=== PATIENT | male | born 1945 | race Caucasian/White ===

== ENCOUNTER → 2018-09-03 | Outpatient (CLI) | payer MEDICARE | LOC: LABPAT 15:44 | PROVIDERS: ATTEND Orthopaedic Surgery | DX: Z01.812 Encounter for preprocedural laboratory examination (principal) | CPT/HCPCS: 87070 ==

== ENCOUNTER 2018-10-21 07:52 | Inpatient (IN) | payer MEDICARE ==
[2018-10-09 12:14] VITALS: BMI 35.6
--- NOTE | 2018-10-20 19:14 | HP ---
HISTORY AND PHYSICAL REASON FOR ADMISSION: Surgery scheduled for 10/21/2018 HISTORY OF PRESENT ILLNESS: Andrzej Bear is a 73-year-old patient seen with symptomatic right knee osteoarthritis. We discussed treatment options. He elected to proceed with right total knee arthroplasty. Consent regarding the procedure was obtained. Medical clearance was provided through the [facility]. PAST MEDICAL HISTORY: Hypertension, hyperlipidemia, hll-phazjgt-[id number] diabetes, gastroesophageal reflux disease. PAST SURGICAL HISTORY: Appendectomy, left total knee arthroplasty, herniorrhaphy. DAILY MEDICATIONS: Atorvastatin, finasteride, losartan, metoprolol, omeprazole. ALLERGIES: None. SOCIAL HISTORY: Denies current tobacco use. PHYSICAL EXAMINATION: Evaluation of the right knee: Range of motion is -2 to 115 degrees. There is tenderness along the medial joint line. Crepitus along the medial patellofemoral compartments with range of motion. Pain with patellofemoral compression. Ligaments are stable. Hip rotation is without pain. Distal neurovascular exam is intact. RADIOGRAPHS: Right knee radiographs reveal severe medial and moderate patellofemoral compartment osteoarthritis. IMPRESSION: 1. Right knee osteoarthritis. 2. Hypertension. 3. Hyperlipidemia. 4. Gastroesophageal reflux disease. 5. Kbe-lvuzweg-fpuffuscr diabetes. PLAN: Right total knee arthroplasty. Surgery 10/21/2018. MMODL / IJN: [id number] /
[~2018-10-21 07:52] MED LIST: ACETAMINOPHEN TAB 500 MG TAB PO ONE; DEXAMETHASONE SOD PHOSPHATE 10 MG/ML 1 ML VIAL IV ONE; LACTATED RINGERS 1,000 ML IV SCH; LIDOCAINE 1% 20 ML VIAL (10MG/ML) FOR IV START INTRADERMA PRN; MELOXICAM 7.5 MG TAB PO ONE; MIDAZOLAM 2 MG/2 ML VIAL IV PRN; ONDANSETRON 4 MG/2 ML VIAL IVP ONE; TRANEXAMIC ACID 1,000 MG in SODIUM CHLORIDE 0.9% 100 ML IVPB ONE; VANCOMYCIN 1,750 MG in SODIUM CHLORIDE 0.9% 500 ML 500 ML IVPB ONE
[2018-10-21 08:47] LABS: Glucose,Whole Blood 108 mg/dL (75-99)
[2018-10-21] MEDS ORDERED: MIDAZOLAM (PF) 2 MG/2 ML VIAL IV ONE (09:25)
[2018-10-21] MEDS ORDERED: fentaNYL (PF) 50 MCG/ML 2 ML AMP IV ONE (09:25)
[2018-10-21] MEDS ORDERED: ROPIVACAINE 1,100 MG, SODIUM CHLORIDE 0.9% 500 ML 330 ML MISCELLANE PRN ×2 (09:52)
--- NOTE | 2018-10-21 09:52 | P.ANPRN ---
Procedure Note - Anesthesia - Nerve Block Performed Right Adductor Canal Infusion Time Out Performed: Yes Date of Procedure: 10/21/18 Procedure Start Time: :24 Procedure Stop Time: 09:35 Location of Patient Procedure: PreOp Indication: Requested by physician Specifically requested for management of pain by DrModesto: Berry Whittaker Sedation Type: Sedate with meaningful contact maintained Preparation: Sterile Prep, Sterile Dressing Position: Supine Needle Types: Pajunk Needle Gauge: 20 Technique: Ultrasound Injectate: 0.5% Ropivacaine (see comment for volume) (20 ml) Blood Aspirated: No Pain Paresthesia on Injection Noted: No Resistance on Injection: Normal Events: Uneventful and Well Tolerated
[2018-10-21] MEDS ORDERED: ROPIVACAINE 246.25 MG, EPINEPHrine 0.5 MG, KETOROLAC 30 MG, cloNIDine HCL/PF 80 MCG, WA... MISCELLANE ONE ×10 (09:59→10:07)
[2018-10-21] MEDS ORDERED: SODIUM CHLORIDE 0.9% 100 ML BAG ONE (10:24)
[2018-10-21] MEDS ORDERED: PROPOFOL 10 MG/ML 20 ML VIAL IV ONE (10:24)
[2018-10-21] MEDS ORDERED: TRANEXAMIC ACID 1,000 MG/10 ML VIAL ONE (10:24)
[2018-10-21] MEDS ORDERED: KETAMINE 10 MG/ML 20 ML VIAL ONE (10:24)
[2018-10-21] MEDS ORDERED: MIDAZOLAM 2 MG/2 ML VIAL ONE (10:24)
[2018-10-21] MEDS ORDERED: ceFAZolin 3,000 MG in SODIUM CHLORIDE 0.9% IRRIGATIO 3,000 ML IRRIGATION ONE (11:02)
[2018-10-21] MEDS ORDERED: LACTATED RINGERS 1,000 ML IV ONE (11:43)
[2018-10-21] MEDS ORDERED: ONDANSETRON 4 MG/2 ML VIAL IVP PRN (12:12)
[2018-10-21] MEDS ORDERED: HYDROmorphone 0.5 MG/0.5 ML SYRINGE IVP PRN ×2 (12:12)
[2018-10-21] MEDS ORDERED: NALOXONE 0.4 MG/ML 1 ML VIAL IV PRN (12:12)
[2018-10-21] MEDS ORDERED: HYDROcodone/APAP 5-325MG 1 EACH TAB PO PRN (12:12)
--- NOTE | 2018-10-21 12:12 | P.OP ---
Date of Procedure: 10/21/18 Preoperative Diagnosis: Right knee osteoarthritis Postoperative Diagnosis: Right knee osteoarthritis Procedure(s) Performed: Right total knee arthroplasty Implants: 1. Depuy attune size 7 right cruciate retaining cemented femur 2. Depuy attune size 7 fixed bearing cemented tibial baseplate 3. Depuy attune fixed bearing size 710 mm polyethylene tibial insert 4. Depuy attune 41 mm all polyethylene cemented patella Anesthesia: regional (Adductor canal catheter), local, spinal Surgeon: Berry Whittaker [employer] Printer #1: Shubham Campo Estimated Blood Loss (ml): 50 Pathology: other (Bone) Condition: stable Disposition: PACU Indications for Procedure: 73-year-old patient seen with symptomatic right knee osteoarthritis. After treatment options were discussed with him, he elected to proceed with total knee arthroplasty. Operative Findings: See description of procedure Description of Procedure: Patient was taken to the operative suite after having an adductor canal catheter placed by the department of anesthesia for postoperative pain management. Patient underwent a spinal anesthetic by the department of anesthesia. Patient was given preoperative IV intake antibiotics and TXA. A well-padded tourniquet was placed about the right lower extremity. The lower extremity was then prepped and draped in the normal sterile orthopedic fashion. The extremity was elevated, a tourniquet was insufflated to 300. A standard anterior incision was made sharply through skin. Dissection was taken down through the subcutaneous soft tissues down to the extensor mechanism. A medial arthrotomy was performed, patella was everted and knee was flexed. There was advanced osteoarthritis noted. I introduced my distal intramedullary femoral drill. I then introduced the distal femoral cutting jig. Andrey JONES secured the cutting jig with 2 pins. I held retractors in position while Andrey JONES performed the distal femoral resection through the guide area we now removed her distal femoral cutting guide. We now placed our 4-in-1 femoral cutting block and positioned and it was secured with 2 pins by Andrey JONES while I held the block in position. The distal femoral finishing was now completed. A proximal tibial cutting guide was positioned. I held the guide in the appropriate position with both hands well Andrey JONES inserted stabilizing pins into the guide. Proximal tibial cut was made. We now placed a trial femoral component into position, along with an appropriate size tibial tray and insert. We now took the knee through range of motion and had full extension good flexion and good overall soft tissue balance noted. The patella was everted and stabilized with 2 towel clips held by Andrey JONES while I performed a flush with patellar quad tendon utilizing a fresh sawblade. We templated the patella, appropriate drill holes were made. An appropriate trial patella was positioned, knee was taken through full range of motion with the patella tracking very nicely. The trial patella was removed. Drill holes were made through the femoral component. All trial components were removed after marking off the appropriate rotation of the tibia. Retractors were now positioned along the proximal tibia. An appropriate keel punch was made with the appropriate size tibial guide by myself on Andrey JONES assisted by holding retractors. At this point appropriate size implants were chosen and opened. The joint was irrigated copiously with pulse lavage mechanical irrigation. The posterior capsule was infiltrated with local analgesic. The wound was irrigated with pulse lavage mechanical irrigation. We mixed antibiotic methylmethacrylate. We placed the knee into flexion. We placed multiple retractors assisted by Andrey JONES to expose the proximal tibia. Once the methyl methacrylate was ready, the tibial component was cemented into place removing any excess methylmethacrylate form by both myself and Andrey JONES. The femoral component was cemented into place removing the removing any excess methylmethacrylate performed by both myself and Andrey JONES. We then inserted the appropriate size polyethylene tibial insert. We made sure that it was locked into position. We took the knee into full extension, and then back in a flexion making sure we had removed any excess methylmethacrylate. The patellar component was then cemented down and secured with clamp. Excess methylmethacrylate removed. We kept the knee in full extension, patellar clamp in position until methylmethacrylate had hardened. Once it had hardened the patellar clamp was removed. The knee was taken through full range of motion. The patella tracked nicely. There was good soft tissue balancing. The tourniquet was now released. Additional hemostasis was achieved via electrocautery. A second gram of TXA was given. The wound again was irrigated with pulse lavage mechanical irrigation. The superficial soft tissues were infiltrated local analgesic. The extensor mechanism was repaired with Vicryl. We checked the repair with range of motion and it was stable. The subcutaneous soft tissues were repaired with Vicryl in layers. The skin was approximated with pernio/Dermabond. Sterile dressings were applied followed by loose web roll and Edy bandage. The patient was transferred to a bed, and taken to recovery in stable and satisfactory condition. Andrey JONES assisted with this complex procedure.
[2018-10-21 13:49] LABS: Glucose,Whole Blood 131 mg/dL (75-99)
--- NOTE | 2018-10-21 14:27 | XR ---
EXAMINATION TYPE: XR knee limited RT DATE OF EXAM: 10/21/2018 COMPARISON: NONE TECHNIQUE: Two views submitted HISTORY: Post op FINDINGS: There is a prosthetic knee in near anatomic alignment. There is soft tissue edema and emphysema. IMPRESSION: 1. Postoperative change. Appears in near-anatomic alignment
--- NOTE | 2018-10-21 16:54 | P.CONS ---
History of Present Illness - Reason for Consult Consult date: 10/21/18 hypertension Requesting physician: Berry Whittaker - Chief Complaint right knee pain - History of Present Illness Patient is a 73-year-old male past medical history of hypertension, dyslipidemia, borderline diabetes, and arthritis who presented for elective right total knee arthroplasty. He tolerated the procedure well without any immediate postoperative complications. Patient seen and examined at bedside. He states his pain is really well- controlled as a 3 out of 10 at this point in time. He denies any chest pain, shortness of breath, nausea, vomiting, or dizziness. He has been well recently denies any recent cough, cold, fever, flu, dysuria, diarrhea, constipation, nausea, or vomiting. He states that he had his last knee replacement [facility] 3 years ago and then spent 1 month in rehab. He reports that he underwent steroid and hyaluronic acid injections without relief of his knee pain or increased ability he therefore decided to present for knee replacement. Review of Systems Pertinent positives and negatives as discussed in HPI, a complete review of systems was performed and all other systems are negative. Past Medical History Past Medical History: GERD/Reflux, Hyperlipidemia, Hypertension, Osteoarthritis (OA), Prostate Disorder, Sleep Apnea/CPAP/BIPAP Additional Past Medical History / Comment(s): one seizure, borderline diabetic, diverticulitis, hiatal hernia History of Any Multi-Drug Resistant Organisms: None Reported Past Surgical History: Hernia Repair, Joint Replacement Additional Past Surgical History / Comment(s): left knee replacement, bilat hernia, pectus excavatum repair Past Anesthesia/Blood Transfusion Reactions: Motion Sickness Additional Past Anesthesia/Blood Transfusion Reaction / Comm: woke up during surgey once Past Psychological History: No Psychological Hx Reported Smoking Status: Never smoker Past Alcohol Use History: None Reported Past Drug Use History: Marijuana Additional Drug Use History / Comment(s): occasionally - Past Family History Father Family Medical History: Cancer Additional Family Medical History / Comment(s): colon Medications and Allergies Home Medications Medication Instructions Recorded Confirmed Type Atorvastatin [Lipitor] 40 mg PO HS 10/09/18 10/21/18 History Cholecalciferol (Vitamin D3) 2,000 unit PO DAILY 10/09/18 10/21/18 History [Vitamin D3] Finasteride [Proscar] 5 mg PO QAM 10/09/18 10/21/18 History Losartan [Cozaar] 50 mg PO QAM 10/09/18 10/21/18 History Metoprolol Tartrate [Lopressor] 25 mg PO BID 10/09/18 10/21/18 History Omeprazole 20 mg PO QAM 10/09/18 10/21/18 History Tamsulosin [Flomax] 0.4 mg PO DAILY 10/09/18 10/21/18 History Allergies Allergy/AdvReac Type Severity Reaction Status Date / Time No Known Allergies Allergy Verified 10/21/18 08:32 Physical Exam Osteopathic Statement: *. No significant issues noted on an osteopathic structural exam other than those noted in the History and Physical/Consult. Vitals: Vital Signs Temp Pulse Resp BP BP Pulse Ox 10/21/18 15:00 64 16 146/75 96 10/21/18 14:30 66 16 111/56 95 10/21/18 14:00 76 16 133/76 96 10/21/18 13:45 66 16 125/66 97 10/21/18 13:30 62 16 125/77 97 10/21/18 13:15 63 16 126/66 97 10/21/18 13:00 66 16 117/67 97 10/21/18 12:45 74 16 119/66 96 10/21/18 12:29 97.1 F L 73 16 120/64 93 L 10/21/18 09:46 61 16 124/65 97 10/21/18 08:11 97.6 F 71 16 116/65 95 Intake and Output 10/21/18 10/21/18 10/21/18 06:59 14:59 22:59 Intake Total 1701 300 Output Total 50 Balance 1651 300 Intake: IV 1701 300 Output: Estimated Blood Loss 50 General: non toxic, no distress, appears at stated age, Obese Derm: no unusual rashes/lesions no unusual ecchymoses, warm, dry Head: atraumatic, normocephalic, symmetric Eyes: EOMI, no lid lag, anicteric sclera, pupils equal round reactive to light ENT: Nose and ears atraumatic, no thrush, no pharyngeal erythema Neck: No thyromegaly, no cervical lymphadenopathy, trachea midline, supple Mouth: no lip lesion, mucus membranes dry Cardiovascular: S1S2 reg, no murmur, capillary refill less than 2 seconds Lungs: CTA bilateral, no rhonchi, no rales , no accessory muscle use Abdominal: soft, nontender to palpation, no guarding, no appreciable organomegaly, normal bowel sounds Ext: RLE with dressing in place, no gross muscle atrophy, muscle strength 5 out of 5 in bilateral upper extremities grossly, no contractures, able to wiggle toes bilateral Neuro: CN II-XI grossly intact, light touch intact all 4 extremities, finger to nose within normal limits, Psych: Alert, oriented, appropriate affect Results Labs: Abnormal Lab Results - Last 24 Hours (Table) 10/21/18 10/21/18 Range/Units 08:43 13:25 POC Glucose (mg/dL) 108 H 131 H (75-99) mg/dL Assessment and Plan Assessment: Hyperglycemia with hx of Prediabetes - SSI - follow BS HTN, controlled - losartan, lopressor HLD - continue lipitor BPH - proscar, flomax GERD - Protonix Obesity with BMI 35.6 - structured outpatient atkins loss Gait disturbances - uses a cane at baseline Thank you for allowing us to participate in the care of this patient. We will follow peripherally. Do not hesitate to contact us with questions. Someone can be reached from the [facility] hospitalist group at all hours of the day at [phone].
[2018-10-21 17:07] LABS: Glucose,Whole Blood 223 mg/dL (75-99)
[2018-10-21] MEDS: INSULIN ASPART (NovoLOG) 100 UNIT/ML VIAL SQ SCH ×2 (17:58→22:49)
[2018-10-21] MEDS: ceFAZolin IN SWFI 2 GM/20 ML SYRINGE IVP SCH ×2 (17:59→23:20)
[2018-10-21] MEDS: SODIUM CHLORIDE 0.9% 1,000 ML IV SCH (17:59)
[2018-10-21 20:03] LABS: Glucose,Whole Blood 205 mg/dL (75-99)
[2018-10-21] MEDS: SENNOSIDES-DOCUSATE SODIUM 1 EACH TAB PO SCH (22:48)
[2018-10-21] MEDS: ENOXAPARIN 30 MG/0.3 ML SYRINGE SQ SCH (22:48)
[2018-10-21] MEDS: METOPROLOL TARTRATE 25 MG TAB PO SCH (22:48)
[2018-10-21] MEDS: ATORVASTATIN 40 MG TAB PO SCH (22:48)
[2018-10-22 01:54] LABS: Glucose,Whole Blood 165 mg/dL (75-99)
[2018-10-22] MEDS: HYDROcodone/APAP 7.5-325MG 1 EACH TAB PO PRN ×3 (04:21→22:22)
[2018-10-22 07:15] LABS: Glucose,Whole Blood 127 mg/dL (75-99)
[2018-10-22] MEDS: INSULIN ASPART (NovoLOG) 100 UNIT/ML VIAL SQ SCH ×4 (07:28→21:59)
[2018-10-22 09:01] LABS: Basophils % (A) 0 %; Eosinophils % (A) 0 %; HCT 38.9 % (39.0-53.0); HGB 12.5 gm/dL (13.0-17.5); Lymphocytes % (A) 7 %; MCH 29.8 pg (25.0-35.0); MCHC 32.1 g/dL (31.0-37.0); Mean Platelet Volume 7.5; Monocytes # (A) 0.7 k/uL (0-1.0); Monocytes % (A) 6 %; Neutrophils # (A) 11.1 k/uL (1.3-7.7); Neutrophils % (A) 86 %; Platelet Count 202 k/uL (150-450); RBC 4.18 m/uL (4.30-5.90); RDW 14.2 % (11.5-15.5)
[2018-10-22] MEDS: PANTOPRAZOLE 40 MG TABLET PO SCH (09:22)
[2018-10-22] MEDS: METOPROLOL TARTRATE 25 MG TAB PO SCH ×2 (09:22→22:04)
[2018-10-22] MEDS: ENOXAPARIN 30 MG/0.3 ML SYRINGE SQ SCH ×2 (09:22→22:05)
[2018-10-22] MEDS: FINASTERIDE 5 MG TAB PO SCH (09:23)
[2018-10-22] MEDS: TAMSULOSIN 0.4 MG CAP.ER.24H PO SCH (09:23)
[2018-10-22] MEDS: MELOXICAM 7.5 MG TAB PO SCH (09:23)
[2018-10-22] MEDS: LOSARTAN 50 MG TAB PO SCH (09:23)
[2018-10-22] MEDS ORDERED: MELATONIN 3 MG TABLET PO PRN (09:45)
[2018-10-22] MEDS ORDERED: ARTIFICIAL TEARS-HYPROMELLOSE DROPS 15 ML BTL BOTH EYES PRN (09:45)
--- NOTE | 2018-10-22 09:51 | P.PN ---
Subjective Progress Note Date: 10/22/18 Principal diagnosis: knee pain Patient is a 73-year-old male past medical history of hypertension, dyslipidemia, borderline diabetes, and arthritis who presented for elective right total knee arthroplasty. He tolerated the procedure well without any immediate postoperative complications. Patient seen and examined at bedside. He complains of not being able to sleep last night. He also states her dyspnea somewhat sore today. He denies any chest pain, shortness of breath, or nausea. Objective - Vital Signs Vital signs: Vital Signs Temp 97.5 F L 10/22/18 07:00 Pulse 66 10/22/18 07:36 Resp 16 10/22/18 07:36 BP 118/72 10/22/18 07:00 Pulse Ox 96 10/22/18 07:00 Intake & Output 10/21/18 10/22/18 10/22/18 18:59 06:59 18:59 Intake Total 2241 10 Output Total 50 200 200 Balance 2191 -190 -200 Intake: IV 2001 Oral 240 10 Output: Urine 200 200 Estimated Blood Loss 50 Other: Voiding Method Urinal Urinal Urinal - Exam General: non toxic, no distress, appears at stated age, obese Derm: warm, dry Head: atraumatic, normocephalic, symmetric Eyes: EOMI, no lid lag, anicteric sclera Mouth: no lip lesion, mucus membranes moist Cardiovascular: S1S2 reg, no murmur, positive posterior tibial pulse bilateral, Lungs: CTA bilateral, no rhonchi, no rales , no accessory muscle use Abdominal: soft, nontender to palpation, no guarding, no appreciable organomegaly Ext: no gross muscle atrophy, 1+ edema, dressing in place over right knee, no contractures Neuro: CN II-XI grossly intact, no focal neuro deficits Psych: Alert, oriented, appropriate affect - Labs CBC & Chem 7: 10/22/18 08:19 Labs: Abnormal Lab Results - Last 24 Hours (Table) 10/21/18 10/21/18 10/21/18 Range/Units 13:25 17:06 20:00 WBC (3.8-10.6) k/uL RBC (4.30-5.90) m/uL Hgb (13.0-17.5) gm/dL Hct (39.0-53.0) % Neutrophils # (1.3-7.7) k/uL POC Glucose (mg/dL) 131 H 223 H 205 H (75-99) mg/dL 10/22/18 10/22/18 10/22/18 Range/Units 01:50 07:14 08:19 WBC 13.0 H (3.8-10.6) k/uL RBC 4.18 L (4.30-5.90) m/uL Hgb 12.5 L (13.0-17.5) gm/dL Hct 38.9 L (39.0-53.0) % Neutrophils # 11.1 H (1.3-7.7) k/uL POC Glucose (mg/dL) 165 H 127 H (75-99) mg/dL Assessment and Plan Assessment: Patient is a 73-year-old male here after right TKA. Hyperglycemia with hx of Prediabetes, improving - SSI - follow BS Insomnia -Melatonin Anemia, acute blood loss -Mild -No need for iron supplementation at this point in time HTN, controlled - losartan, lopressor HLD - continue lipitor BPH - proscar, flomax GERD - Protonix Obesity with BMI 35.6 - structured outpatient atkins loss Gait disturbances - uses a cane at baseline Medically optimized. Discharge at the discretion of orthopedics.
--- NOTE | 2018-10-22 10:43 | P.PN ---
Progress Note - Text 10/22 652 am 73 year old male s/p tkr by Dr Whittaker. pt has an on -q pump for post op pain control with the solution running at 8cc per hour with a vas of 2. continue present management.
[2018-10-22 11:36] LABS: Glucose,Whole Blood 125 mg/dL (75-99)
--- NOTE | 2018-10-22 11:45 | P.PN ---
Subjective Progress Note Date: 10/22/18 Principal diagnosis: Status post right total knee arthroplasty Patient evaluated at bedside today. He does note some increasing pain in the right knee. It is very difficult time sleeping. He denies chest pain or shortness of breath. Concerned about going home, he has a lot of stairs at home, he also lives by himself. Objective - Vital Signs Vital signs: Vital Signs Temp 97.5 F L 10/22/18 07:00 Pulse 66 10/22/18 07:36 Resp 16 10/22/18 07:36 BP 118/72 10/22/18 07:00 Pulse Ox 96 10/22/18 07:00 Intake & Output 10/21/18 10/22/18 10/22/18 18:59 06:59 18:59 Intake Total 2241 10 Output Total 50 200 200 Balance 2191 -190 -200 Intake: IV 2001 Oral 240 10 Output: Urine 200 200 Estimated Blood Loss 50 Other: Voiding Method Urinal Urinal Urinal - Exam Right lower extremity: Incision is clean, dry, and intact. The exofin fusion tape is in good condition. There is minimal soft tissue swelling and ecchymosis surrounding the medial and lateral aspects of the incision. Calf is soft, no tenderness with palpation. Plantar flexion, dorsiflexion, EHL, FHL are intact. Sensory exam to light touch throughout the extremity is intact, dorsal pedis pulses 2+. - Labs CBC & Chem 7: 10/22/18 08:19 Labs: Abnormal Lab Results - Last 24 Hours (Table) 10/21/18 10/21/18 10/21/18 Range/Units 13:25 17:06 20:00 WBC (3.8-10.6) k/uL RBC (4.30-5.90) m/uL Hgb (13.0-17.5) gm/dL Hct (39.0-53.0) % Neutrophils # (1.3-7.7) k/uL POC Glucose (mg/dL) 131 H 223 H 205 H (75-99) mg/dL 10/22/18 10/22/18 10/22/18 Range/Units 01:50 07:14 08:19 WBC 13.0 H (3.8-10.6) k/uL RBC 4.18 L (4.30-5.90) m/uL Hgb 12.5 L (13.0-17.5) gm/dL Hct 38.9 L (39.0-53.0) % Neutrophils # 11.1 H (1.3-7.7) k/uL POC Glucose (mg/dL) 165 H 127 H (75-99) mg/dL 10/22/18 Range/Units 11:35 WBC (3.8-10.6) k/uL RBC (4.30-5.90) m/uL Hgb (13.0-17.5) gm/dL Hct (39.0-53.0) % Neutrophils # (1.3-7.7) k/uL POC Glucose (mg/dL) 125 H (75-99) mg/dL Assessment and Plan Plan: Assessment: Postoperative day #1 status post right total knee arthroplasty Plan: Pain control, continue oral medication, IV as needed GI and DVT prophylaxis, continue current medication Continue working with physical therapy Medical recommendations Daily dressing changes/ice and elevate Due to patient's living status at home, plan for discharge to rehab. Patient has been made inpatient Time with Patient: Less than 30
[2018-10-22 16:23] LABS: Glucose,Whole Blood 102 mg/dL (75-99)
[2018-10-22] MEDS: HYDROmorphone 0.5 MG/0.5 ML SYRINGE IVP PRN (18:12)
[2018-10-22] MEDS: SODIUM CHLORIDE 0.9% 1,000 ML IV SCH (20:30)
[2018-10-22 21:53] LABS: Glucose,Whole Blood 129 mg/dL (75-99)
[2018-10-22] MEDS: ATORVASTATIN 40 MG TAB PO SCH (22:05)
[2018-10-22] MEDS: SENNOSIDES-DOCUSATE SODIUM 1 EACH TAB PO SCH (22:05)
[2018-10-23 02:30] LABS: Glucose,Whole Blood 131 mg/dL (75-99)
[2018-10-23] MEDS: HYDROmorphone 0.5 MG/0.5 ML SYRINGE IVP PRN (02:40)
[2018-10-23] MEDS: SODIUM CHLORIDE 0.9% 1,000 ML IV SCH (05:32)
[2018-10-23] MEDS: HYDROcodone/APAP 7.5-325MG 1 EACH TAB PO PRN (05:58)
[2018-10-23 07:17] LABS: Glucose,Whole Blood 116 mg/dL (75-99)
[2018-10-23 07:24] VITALS: RESP 16
[2018-10-23] MEDS: INSULIN ASPART (NovoLOG) 100 UNIT/ML VIAL SQ SCH ×2 (07:52→11:44)
[2018-10-23] MEDS: TAMSULOSIN 0.4 MG CAP.ER.24H PO SCH (08:01)
[2018-10-23] MEDS: METOPROLOL TARTRATE 25 MG TAB PO SCH (08:01)
[2018-10-23] MEDS: MELOXICAM 7.5 MG TAB PO SCH (08:01)
[2018-10-23] MEDS: PANTOPRAZOLE 40 MG TABLET PO SCH (08:01)
[2018-10-23] MEDS: FINASTERIDE 5 MG TAB PO SCH (08:02)
[2018-10-23] MEDS: LOSARTAN 50 MG TAB PO SCH (08:02)
[2018-10-23] MEDS: ENOXAPARIN 30 MG/0.3 ML SYRINGE SQ SCH (08:02)
[2018-10-23] MEDS ORDERED: HYDROcodone/APAP 7.5-325MG 1 EACH TAB PO PRN (08:09)
--- NOTE | 2018-10-23 10:42 | P.PN ---
Subjective Progress Note Date: 10/23/18 Principal diagnosis: Status post right total knee arthroplasty Patient evaluated at bedside today. Patient's pain is slightly improved since yesterday. He denies chest pain or shortness of breath. Objective - Vital Signs Vital signs: Vital Signs Temp 98.2 F 10/23/18 07:00 Pulse 72 10/23/18 07:00 Resp 16 10/23/18 07:00 BP 145/84 10/23/18 07:00 Pulse Ox 95 10/23/18 07:00 Intake & Output 10/22/18 10/23/18 10/23/18 18:59 06:59 18:59 Intake Total 10 260 Output Total 200 Balance -200 10 260 Intake: Oral 10 260 Output: Urine 200 Other: Voiding Method Urinal # Voids 2 1 - Exam Right lower extremity: Incision is clean, dry, and intact. The exofin fusion tape is in good condition. There is minimal soft tissue swelling and ecchymosis surrounding the medial and lateral aspects of the incision. Calf is soft, no tenderness with palpation. Plantar flexion, dorsiflexion, EHL, FHL are intact. Sensory exam to light touch throughout the extremity is intact, dorsal pedis pulses 2+. - Labs CBC & Chem 7: 10/22/18 08:19 Labs: Abnormal Lab Results - Last 24 Hours (Table) 10/22/18 10/22/18 10/22/18 Range/Units 11:35 16:21 21:50 POC Glucose (mg/dL) 125 H 102 H 129 H (75-99) mg/dL 10/23/18 10/23/18 Range/Units 02:29 07:16 POC Glucose (mg/dL) 131 H 116 H (75-99) mg/dL Assessment and Plan Plan: Assessment: Postoperative day #2 status post right total knee arthroplasty Plan: Pain control, plan for discharge home on oral medication GI and DVT prophylaxis, aspirin 81 mg twice a day Continue working with physical therapy Medical recommendations Daily dressing changes/ice and elevate Patient will be discharged to rehab today Time with Patient: Less than 30
--- NOTE | 2018-10-23 10:46 | P.DS ---
Providers Date of admission: 10/21/2018 Expected date of discharge: 10/23/18 Attending physician: Berry Whittaker Consults: 10/21/18 12:12 Consult Physician Routine Consulting Provider: Lyssa Harvey Consult Reason/Comments: Medical management Do you want consulting provider notified?: Yes Primary care physician: Stated None Hospital Course: Date of admission: 10/21/2018 Date of discharge: 10/23/2018 Admission diagnosis: Status post right total knee arthroplasty Discharge diagnosis: Same Attending physician: Dr. Whittaker Surgical procedures: Right total knee arthroplasty Brief history: Patient is a 73-year-old male with a history of progressive primary right knee osteoarthritis. At this point patient has failed conservative treatment measures and has opted to proceed with a elective right total knee arthroplasty. Hospital course: Details of patient's surgery can be found in operative report. Patient tolerated the procedure well and was subsequently transported to orthopedic floor. Patient's orthopeidc and medical care was provided daily. Patient had daily laboratory tests performed for evaluation of overall blood counts. Patient had daily physical therapy to include strengthening range of motion as well as education with walker ambulation. Patient had daily CPM usage as part of their physical therapy program. Patient was treated with Lovenox for their postoperative DVT prophylaxis during their inpatient stay. Patient was noted to have a relatively uneventful postoperative course. Patient reported satisfactory pain control with oral pain medications by postoperative day 0. Patient showed satisfactory progress with physical therapy. Patient moved steadily through the program and had no difficulty meeting the goals by postop erative day 2. Given patient's otherwise satisfactory course and having met physical therapy goals, plan is to discharge patient home on postoperative day 2. Discharge condition/disposition: Patient will be discharged home in stable condition. Discharge medications: Instructions are given on resumption of patient's normal daily medications per primary care recommendation, in addition patient will be prescribed Ladd 7.5 mg/325 mg, Colace 100 mg, aspirin 81 mg. Discharge instructions: 1. Wound care and infection precautions, [keep incision dry and covered while showering], no lotions, creams, moisturizers. No soaking, tubs, pools, hottubs. Do not scrub over the incision. 2. Weight-bear [as tolerated] with walker / cane until follow-up. 3. Ice and elevate when necessary. Do not exceed 20 minutes per hour with ice pack. 4. Utilize compression sleeve until seen at first follow up appointment. 5. Visiting nursing care. 6. Home physical therapy [including home CPM]. 7. Pain meds and anticoagulants per prescription. 8. Pain medication has potential to cause constipation. Increase oral fluid and fiber intake. Contact primary care provider if you have not had a bowel movement within 48 hours after discharge 9. No anti-inflammatory medication until discussed at first post operative visit, this including Motrin, Aleve, Mobic, Diclofenac. 10. Follow up in office at 2 weeks postop with Andrey Campo PA-C 11. Follow up with your primary care doctor 7-10 days after discharge. 12. Contact [facility] with any questions, . Procedures: Right total knee arthroplasty Patient Condition at Discharge: Good Plan - Discharge Summary Discharge Rx Participant: Yes New Discharge Prescriptions: New Aspirin [Adult Low Dose Aspirin EC] 81 mg PO BID #60 tablet. Docusate [Colace] 100 mg PO DAILY #30 capsule HYDROcodone/APAP 7.5-325MG [Ladd 7.5] 1 - 2 each PO Q6HR PRN #56 tab PRN Reason: Pain No Action Tamsulosin [Flomax] 0.4 mg PO DAILY Metoprolol Tartrate [Lopressor] 25 mg PO BID Losartan [Cozaar] 50 mg PO QAM Finasteride [Proscar] 5 mg PO QAM Omeprazole 20 mg PO QAM Cholecalciferol (Vitamin D3) [Vitamin D3] 2,000 unit PO DAILY Atorvastatin [Lipitor] 40 mg PO HS Discharge Medication List Atorvastatin [Lipitor] 40 mg PO HS 10/09/18 [History] Cholecalciferol (Vitamin D3) [Vitamin D3] 2,000 unit PO DAILY 10/09/18 [History] Finasteride [Proscar] 5 mg PO QAM 10/09/18 [History] Losartan [Cozaar] 50 mg PO QAM 10/09/18 [History] Metoprolol Tartrate [Lopressor] 25 mg PO BID 10/09/18 [History] Omeprazole 20 mg PO QAM 10/09/18 [History] Tamsulosin [Flomax] 0.4 mg PO DAILY 10/09/18 [History] Aspirin [Adult Low Dose Aspirin EC] 81 mg PO BID #60 tablet. 10/23/18 [Rx] Docusate [Colace] 100 mg PO DAILY #30 capsule 10/23/18 [Rx] HYDROcodone/APAP 7.5-325MG [Ladd 7.5] 1 - 2 each PO Q6HR PRN #56 tab 10/23/18 [Rx] Follow up Appointment(s)/Referral(s): Shubham Campo, [facility] [[employer]] - 11/06/18 2:50 pm Activity/Diet/Wound Care/Special Instructions: Orthopedic Discharge Instructions: 1. Wound care and infection precautions, keep incision dry and covered while showering, no lotions, creams, moisturizers. No soaking, pools, hot tubs. Do not scrub over incision. 2. Weight-bear as tolerated with walker / cane until follow-up. 3. Ice and elevate when necessary. Do not exceed 20 minutes per hour with ice pack. 4. Utilize compression sleeve until seen at first follow up appointment. 5. Pain meds and anticoagulants per prescription. 6. Pain medication has potential to cause constipation. Increase oral fluid and fiber intake. Contact primary care provider if you have not had a bowel movement within 48 hours after discharge. 7. No anti-inflammatory medication until discussed at first post operative visit, this including Motrin, Aleve, Mobic, Diclofenac. 8. Follow up in office at 2 weeks postop with Andrey Campo PA-C 9. Follow up with your primary care doctor 7-10 days after discharge. 10. Contact [facility] with any questions, . Discharge Disposition: TRANSFER TO SNF/ECF
[2018-10-23 11:35] LABS: Glucose,Whole Blood 101 mg/dL (75-99)
[2018-10-23] MEDS ORDERED: POLYETHYLENE GLYCOL 3350 17 GM POWD.PACK PO PRN (12:08)
[2018-10-23 14:16] VITALS: BP 161/82; PULSE 81; TEMP 98.1
--- NOTE | 2018-10-23 16:12 | P.PN ---
Subjective Progress Note Date: 10/23/18 (delayed charting seen at 10 am) Principal diagnosis: knee pain Patient is a 73-year-old male past medical history of hypertension, dyslipidemia, borderline diabetes, and arthritis who presented for elective right total knee arthroplasty. He tolerated the procedure well without any immediate postoperative complications. Patient seen and examined at bedside. Better last night, pain in knee controlled today but still sore, no chest pain, no shortness of breath, no nausea or vomiting. Still no bowel movement since surgery. Will take 1 dose of MiraLAX. Objective - Vital Signs Vital signs: Vital Signs Temp 98.1 F 10/23/18 14:15 Pulse 81 10/23/18 14:15 Resp 16 10/23/18 14:15 BP 161/82 10/23/18 14:15 Pulse Ox 94 L 10/23/18 14:15 Intake & Output 10/22/18 10/23/18 10/23/18 18:59 06:59 18:59 Intake Total 10 260 Output Total 200 Balance -200 10 260 Intake: Oral 10 260 Output: Urine 200 Other: Voiding Method Urinal # Voids 2 1 2 - Exam General: non toxic, no distress, appears at stated age, obese Derm: warm, dry Head: atraumatic, normocephalic, symmetric Eyes: EOMI, no lid lag, anicteric sclera Mouth: no lip lesion, mucus membranes moist Cardiovascular: S1S2 reg, no murmur, positive posterior tibial pulse bilateral, Lungs: CTA bilateral, no rhonchi, no rales , no accessory muscle use Abdominal: soft, nontender to palpation, no guarding, no appreciable organomegaly Ext: no gross muscle atrophy, 2+ edema, dressing in place over right knee, no contractures Neuro: CN II-XI grossly intact, no focal neuro deficits Psych: Alert, oriented, appropriate affect - Labs CBC & Chem 7: 10/22/18 08:19 Labs: Abnormal Lab Results - Last 24 Hours (Table) 10/22/18 10/22/18 10/23/18 Range/Units 16:21 21:50 02:29 POC Glucose (mg/dL) 102 H 129 H 131 H (75-99) mg/dL 10/23/18 10/23/18 Range/Units 07:16 11:34 POC Glucose (mg/dL) 116 H 101 H (75-99) mg/dL Assessment and Plan Assessment: Patient is a 73-year-old male here after right TKA. Anemia, acute blood loss -Mild -No need for iron supplementation at this point in time HTN, controlled - losartan, lopressor HLD - continue lipitor BPH - proscar, flomax GERD - Protonix Obesity with BMI 35.6 - structured outpatient atkins loss Gait disturbances - uses a cane at baseline Hyperglycemia with hx of Prediabetes, resolved -stop insulin - typically well controlled at home Insomnia, resolved -Melatonin stopped Medically optimized. Discharge at the discretion of orthopedics.
== END 2018-10-23 15:00 | DRG 470 ==
LOC: OR 07:52 → 4SSUR 15:14 → OR 10-22 11:37 → 4SSUR 10-22 14:17
PROVIDERS: ADMIT Orthopaedic Surgery; ATTEND Orthopaedic Surgery
PROC: 0SRC0J9 Replacement of Right Knee Joint with Synthetic Substitute, Cemented, Open Approach (ICD-10-PCS; principal; 2018-10-21 10:15)
DX: M17.11 Unilateral primary osteoarthritis, right knee (principal); D62 Acute posthemorrhagic anemia; E11.65 Type 2 diabetes mellitus with hyperglycemia; E66.9 Obesity, unspecified; E78.5 Hyperlipidemia, unspecified; G47.00 Insomnia, unspecified; G47.30 Sleep apnea, unspecified; Z99.89 Dependence on other enabling machines and devices; I10 Essential (primary) hypertension; K21.9 Gastro-esophageal reflux disease without esophagitis; N40.0 Benign prostatic hyperplasia without lower urinary tract symptoms; Z68.35 Body mass index [BMI] 35.0-35.9, adult; Z79.84 Long term (current) use of oral hypoglycemic drugs; Z79.899 Other long term (current) drug therapy; Z96.652 Presence of left artificial knee joint; K44.9 Diaphragmatic hernia without obstruction or gangrene; R26.89 Other abnormalities of gait and mobility; Z80.0 Family history of malignant neoplasm of digestive organs
CPT/HCPCS: 85025; 85730; 88300

== ENCOUNTER 2018-11-04 13:39 | Inpatient (IN) | payer MEDICARE ==
[2018-11-04] MEDS ORDERED: ONDANSETRON 4 MG/2 ML VIAL IVP STA (16:32)
[2018-11-04] MEDS ORDERED: SODIUM CHLORIDE 0.9% 500 ML 500 ML IV STA (16:32)
[2018-11-04] MEDS ORDERED: PANTOPRAZOLE 40 MG/10 ML VIAL IVP STA (16:50)
[2018-11-04 17:03] LABS: Basophils % (A) 0 %; Eosinophils # (A) 0.1 k/uL (0-0.7); Eosinophils % (A) 2 %; HCT 34.4 % (39.0-53.0); HGB 10.9 gm/dL (13.0-17.5); Lymphocytes # (A) 0.9 k/uL (1.0-4.8); Lymphocytes % (A) 12 %; MCH 29.5 pg (25.0-35.0); MCHC 31.7 g/dL (31.0-37.0); MCV 92.8 fL (80.0-100.0); Mean Platelet Volume 6.4; Monocytes # (A) 0.4 k/uL (0-1.0); Monocytes % (A) 5 %; Neutrophils # (A) 5.8 k/uL (1.3-7.7); Neutrophils % (A) 78 %; Platelet Count 329 k/uL (150-450); RBC 3.71 m/uL (4.30-5.90); RDW 13.6 % (11.5-15.5); WBC 7.4 k/uL (3.8-10.6)
[2018-11-04] MEDS ORDERED: HYDROcodone/APAP 7.5-325MG 1 EACH TAB PO ONE (17:09)
[2018-11-04 17:12] LABS: Albumin 3.6 g/dL (3.5-5.0); INR 0.9 (<1.2); Partial Thromboplastin Time 24.7 sec (22.0-30.0); Potassium 4.4 mmol/L (3.5-5.1); Prothrombin Time 10.2 sec (9.0-12.0); Total Bilirubin 0.6 mg/dL (0.2-1.3); Total Protein 6.4 g/dL (6.3-8.2)
--- NOTE | 2018-11-04 17:23 | ED ---
GI Bleed HPI - General Chief complaint: GI Bleed Stated complaint: Blood in Stool Time Seen by Provider: 11/04/18 16:00 Source: patient Mode of arrival: ambulatory Limitations: no limitations - History of Present Illness Initial comments: The patient is a 73-year-old male who presents emergency room with reported bright red blood per rectum. The patient recently had a right knee replacement on October 22. He has been taking 2 baby aspirins per day for anticoagulation. He was sent to rehab. During rehab he reported multiple bouts of constipation for which he had to take stool softeners. He did come home yesterday. He reports that immediately upon returning home he did have an episode of bright red blood per rectum. He admits to additional episodes today. He reports formed stool covered in bright red blood as well as blood within the toilet bowl and when he wipes. No history of similar in the past. He does report a history of diverticulosis and diverticulitis. Denies a history of peptic ulcer disease. He had an EGD last last year. His last colonoscopy was 4 years ago. He has a history of a hiatal hernia. Admits to nausea with an uneasy stomach. Denies any abdominal pain. No changes in his urination to include dysuria, hematuria or difficulty voiding. No hematemesis. Denies CP, presyncope, dizziness or shortness of breath. No reported fevers or chills. No other alleviating, precipitating or modifying factors - Related Data Home Medications Medication Instructions Recorded Confirmed Atorvastatin [Lipitor] 40 mg PO HS 10/09/18 11/04/18 Cholecalciferol (Vitamin D3) 2,000 unit PO DAILY 10/09/18 11/04/18 [Vitamin D3] Finasteride [Proscar] 5 mg PO QAM 10/09/18 11/04/18 Losartan [Cozaar] 50 mg PO QAM 10/09/18 11/04/18 Metoprolol Tartrate [Lopressor] 25 mg PO BID 10/09/18 11/04/18 Omeprazole 20 mg PO QAM 10/09/18 11/04/18 Tamsulosin [Flomax] 0.4 mg PO DAILY 10/09/18 11/04/18 Previous Rx's Medication Instructions Recorded Docusate [Colace] 100 mg PO DAILY #30 capsule 10/23/18 HYDROcodone/APAP 7.5-325MG [Brick 1 - 2 each PO Q6HR PRN #56 tab 10/23/18 7.5-325] Artificial Tears-Hypromellose 1 drops BOTH EYES QID PRN #0 bottle 11/08/18 [Artificial Tear Drops] Allergies Allergy/AdvReac Type Severity Reaction Status Date / Time No Known Allergies Allergy Verified 11/04/18 16:48 Review of Systems ROS Statement: Those systems with pertinent positive or pertinent negative responses have been documented in the HPI. ROS Other: All systems not noted in ROS Statement are negative. Past Medical History Past Medical History: GERD/Reflux, Hyperlipidemia, Hypertension, Osteoarthritis (OA), Prostate Disorder, Sleep Apnea/CPAP/BIPAP Additional Past Medical History / Comment(s): one seizure, borderline diabetic, diverticulitis, hiatal hernia History of Any Multi-Drug Resistant Organisms: None Reported Past Surgical History: Hernia Repair, Joint Replacement Additional Past Surgical History / Comment(s): left knee replacement, bilat hernia, pectus excavatum repair Past Anesthesia/Blood Transfusion Reactions: Motion Sickness Additional Past Anesthesia/Blood Transfusion Reaction / Comment(s): woke up during surgey once Past Psychological History: No Psychological Hx Reported Smoking Status: Never smoker Past Alcohol Use History: None Reported Past Drug Use History: Marijuana - Past Family History Father Family Medical History: Cancer Additional Family Medical History / Comment(s): colon General Exam Limitations: no limitations General appearance: alert, in no apparent distress Head exam: Present: atraumatic, normocephalic, normal inspection Eye exam: Present: normal appearance, PERRL, EOMI. Absent: scleral icterus, c onjunctival injection, periorbital swelling ENT exam: Present: normal exam, mucous membranes moist Neck exam: Present: normal inspection. Absent: tenderness, meningismus, lymphadenopathy Respiratory exam: Present: normal lung sounds bilaterally. Absent: respiratory distress, wheezes, rales, rhonchi, stridor Cardiovascular Exam: Present: regular rate, normal rhythm, normal heart sounds. Absent: systolic murmur, diastolic murmur, rubs, gallop, clicks GI/Abdominal exam: Present: soft, normal bowel sounds. Absent: distended, tenderness, guarding, rebound, rigid Rectal exam: Present: normal rectal tone, heme (+) stool, bloody stool. Absent: fecal impaction, hemorrhoids, prostate tenderness Extremities exam: Present: full ROM, normal capillary refill, other (bandage to right knee is c/d/i). Absent: tenderness, pedal edema, joint swelling, calf tenderness Back exam: Present: normal inspection Neurological exam: Present: alert, oriented X3, CN II-XII intact Psychiatric exam: Present: normal affect, normal mood Skin exam: Present: warm, dry, intact, normal color. Absent: rash Course Vital Signs 11/04/18 11/04/18 11/04/18 14:34 16:45 18:25 Temperature 98.3 F Pulse Rate 97 82 80 Respiratory 18 16 16 Rate Blood Pressure 113/79 111/62 118/61 O2 Sat by Pulse 99 98 99 Oximetry 11/04/18 20:52 Temperature Pulse Rate 84 Respiratory 16 Rate Blood Pressure 115/71 O2 Sat by Pulse 98 Oximetry Procedures - Stool Hemoccult Hemoccult result: positive Medical Decision Making - Medical Decision Making Upon arrival the patient is placed into room 28. A thorough history and physical exam is performed. The patient is placed on continuous pulse ox and cardiac monitoring. A 12-lead EKG is performed which demonstrates a normal sinus rhythm. Peripheral IV is established. The patient is provided with 40 mg of Protonix, 4 mg of Zofran and a 500 mL bolus of 0.9% normal saline. The patient is provided with 2 Brick, 7.5325 mg for chronic neck pain. Laboratory studies and a CT of his abdomen and pelvis are performed. Rectal exam is performed the patient which does demonstrate a small amount of bright red blood. Upon return of the results I did discuss them with the patient. I did recommend overnight observation to continue to monitor the patient's hemoglobin and be evaluated by GI. The patient did agree to this. I did call discuss the case with Dr. boyce. He did accept admission of the patient. Bridging orders are placed. I will make the patient nothing by mouth at midnight. I will consult GI to evaluate the patient. He did remain in stable condition awaiting transport to the floor - Lab Data Result diagrams: 11/08/18 05:45 11/08/18 05:45 Lab Results 11/04/18 11/04/18 11/04/18 Range/Units 16:40 16:40 16:40 WBC 7.4 (3.8-10.6) k/uL RBC 3.71 L (4.30-5.90) m/uL Hgb 10.9 L (13.0-17.5) gm/dL Hct 34.4 L (39.0-53.0) % MCV 92.8 (80.0-100.0) fL MCH 29.5 (25.0-35.0) pg MCHC 31.7 (31.0-37.0) g/dL RDW 13.6 (11.5-15.5) % Plt Count 329 (150-450) k/uL Neutrophils % 78 % Lymphocytes % 12 % Monocytes % 5 % Eosinophils % 2 % Basophils % 0 % Neutrophils # 5.8 (1.3-7.7) k/uL Lymphocytes # 0.9 L (1.0-4.8) k/uL Monocytes # 0.4 (0-1.0) k/uL Eosinophils # 0.1 (0-0.7) k/uL Basophils # 0.0 (0-0.2) k/uL PT 10.2 (9.0-12.0) sec INR 0.9 (<1.2) APTT 24.7 (22.0-30.0) sec Sodium 138 (137-145) mmol/L Potassium 4.4 (3.5-5.1) mmol/L Chloride 100 (98-107) mmol/L Carbon Dioxide 30 (22-30) mmol/L Anion Gap 8 mmol/L BUN 22 H (9-20) mg/dL Creatinine 1.06 (0.66-1.25) mg/dL Est GFR (CKD-EPI)AfAm 80 (>60 ml/min/1.73 sqM) Est GFR (CKD-EPI)NonAf 69 (>60 ml/min/1.73 sqM) Glucose 114 H (74-99) mg/dL Plasma Lactic Acid Mendoza (0.7-2.0) mmol/L Calcium 9.0 (8.4-10.2) mg/dL Total Bilirubin 0.6 (0.2-1.3) mg/dL AST 51 (17-59) U/L ALT 50 (21-72) U/L Alkaline Phosphatase 82 (38-126) U/L Total Protein 6.4 (6.3-8.2) g/dL Albumin 3.6 (3.5-5.0) g/dL Lipase 71 (23-300) U/L Stool Occult Blood (Negative) Blood Type Blood Type Confirm Blood Type Recheck Antibody Screen Spec Expiration Date 11/04/18 11/04/18 11/04/18 Range/Units 16:40 16:40 16:40 WBC (3.8-10.6) k/uL RBC (4.30-5.90) m/uL Hgb (13.0-17.5) gm/dL Hct (39.0-53.0) % MCV (80.0-100.0) fL MCH (25.0-35.0) pg MCHC (31.0-37.0) g/dL RDW (11.5-15.5) % Plt Count (150-450) k/uL Neutrophils % % Lymphocytes % % Monocytes % % Eosinophils % % Basophils % % Neutrophils # (1.3-7.7) k/uL Lymphocytes # (1.0-4.8) k/uL Monocytes # (0-1.0) k/uL Eosinophils # (0-0.7) k/uL Basophils # (0-0.2) k/uL PT (9.0-12.0) sec INR (<1.2) APTT (22.0-30.0) sec Sodium (137-145) mmol/L Potassium (3.5-5.1) mmol/L Chloride (98-107) mmol/L Carbon Dioxide (22-30) mmol/L Anion Gap mmol/L BUN (9-20) mg/dL Creatinine (0.66-1.25) mg/dL Est GFR (CKD-EPI)AfAm (>60 ml/min/1.73 sqM) Est GFR (CKD-EPI)NonAf (>60 ml/min/1.73 sqM) Glucose (74-99) mg/dL Plasma Lactic Acid Mendoza 1.6 (0.7-2.0) mmol/L Calcium (8.4-10.2) mg/dL Total Bilirubin (0.2-1.3) mg/dL AST (17-59) U/L ALT (21-72) U/L Alkaline Phosphatase (38-126) U/L Total Protein (6.3-8.2) g/dL Albumin (3.5-5.0) g/dL Lipase (23-300) U/L Stool Occult Blood Positive (Negative) Blood Type A Positive Blood Type Confirm Blood Type Recheck CABO Indicated Antibody Screen NEGATIVE Spec Expiration Date 11/07/2018233911/04/18 11/05/18 11/05/18 Range/Units 18:17 06:51 06:51 WBC 5.3 (3.8-10.6) k/uL RBC 3.29 L (4.30-5.90) m/uL Hgb 10.1 L (13.0-17.5) gm/dL Hct 31.5 L (39.0-53.0) % MCV 95.9 (80.0-100.0) fL MCH 30.6 (25.0-35.0) pg MCHC 31.9 (31.0-37.0) g/dL RDW 13.9 (11.5-15.5) % Plt Count 295 (150-450) k/uL Neutrophils % 66 % Lymphocytes % 18 % Monocytes % 6 % Eosinophils % 7 % Basophils % 1 % Neutrophils # 3.5 (1.3-7.7) k/uL Lymphocytes # 0.9 L (1.0-4.8) k/uL Monocytes # 0.3 (0-1.0) k/uL Eosinophils # 0.4 (0-0.7) k/uL Basophils # 0.0 (0-0.2) k/uL PT (9.0-12.0) sec INR (<1.2) APTT (22.0-30.0) sec Sodium 138 (137-145) mmol/L Potassium 4.4 (3.5-5.1) mmol/L Chloride 102 (98-107) mmol/L Carbon Dioxide 29 (22-30) mmol/L Anion Gap 7 mmol/L BUN 19 (9-20) mg/dL Creatinine 0.99 (0.66-1.25) mg/dL Est GFR (CKD-EPI)AfAm 86 (>60 ml/min/1.73 sqM) Est GFR (CKD-EPI)NonAf 75 (>60 ml/min/1.73 sqM) Glucose 100 H (74-99) mg/dL Plasma Lactic Acid Mendoza (0.7-2.0) mmol/L Calcium 8.6 (8.4-10.2) mg/dL Total Bilirubin (0.2-1.3) mg/dL AST (17-59) U/L ALT (21-72) U/L Alkaline Phosphatase (38-126) U/L Total Protein (6.3-8.2) g/dL Albumin (3.5-5.0) g/dL Lipase (23-300) U/L Stool Occult Blood (Negative) Blood Type Blood Type Confirm A Positive Blood Type Recheck Antibody Screen Spec Expiration Date 11/06/18 11/06/18 Range/Units 08:24 21:01 WBC 5.2 6.1 (3.8-10.6) k/uL RBC 3.37 L 3.34 L (4.30-5.90) m/uL Hgb 10.7 L 10.4 L (13.0-17.5) gm/dL Hct 32.1 L 31.7 L (39.0-53.0) % MCV 95.4 94.9 (80.0-100.0) fL MCH 31.7 31.0 (25.0-35.0) pg MCHC 33.2 32.7 (31.0-37.0) g/dL RDW 14.0 14.6 (11.5-15.5) % Plt Count 303 326 (150-450) k/uL Neutrophils % 62 63 % Lymphocytes % 21 18 % Monocytes % 6 9 % Eosinophils % 8 6 % Basophils % 1 1 % Neutrophils # 3.2 3.8 (1.3-7.7) k/uL Lymphocytes # 1.1 1.1 (1.0-4.8) k/uL Monocytes # 0.3 0.6 (0-1.0) k/uL Eosinophils # 0.4 0.4 (0-0.7) k/uL Basophils # 0.0 0.0 (0-0.2) k/uL PT (9.0-12.0) sec INR (<1.2) APTT (22.0-30.0) sec Sodium (137-145) mmol/L Potassium (3.5-5.1) mmol/L Chloride (98-107) mmol/L Carbon Dioxide (22-30) mmol/L Anion Gap mmol/L BUN (9-20) mg/dL Creatinine (0.66-1.25) mg/dL Est GFR (CKD-EPI)AfAm (>60 ml/min/1.73 sqM) Est GFR (CKD-EPI)NonAf (>60 ml/min/1.73 sqM) Glucose (74-99) mg/dL Plasma Lactic Acid Mendoza (0.7-2.0) mmol/L Calcium (8.4-10.2) mg/dL Total Bilirubin (0.2-1.3) mg/dL AST (17-59) U/L ALT (21-72) U/L Alkaline Phosphatase (38-126) U/L Total Protein (6.3-8.2) g/dL Albumin (3.5-5.0) g/dL Lipase (23-300) U/L Stool Occult Blood (Negative) Blood Type Blood Type Confirm Blood Type Recheck Antibody Screen Spec Expiration Date - EKG Data EKG Comments: EKG demonstrates a normal sinus rhythm with a ventricular rate 74. TN interval 148. QRS E4. QTC 439. There is an inverted T-wave in lead 3. There is also Q wave in lead 3. No acute ST segment elevations concerning for ischemia Disposition Clinical Impression: Hematochezia, Lower gastrointestinal hemorrhage, Status post total right knee replacement, Acquired diverticulosis of colon Disposition: ADMITTED IP TO THIS HOSP Condition: Stable Is patient prescribed a controlled substance at d/c from ED?: No Decision to Admit Reason: Admit from EC Decision Date: 11/04/18 Decision Time: 20:50
--- NOTE | 2018-11-04 20:12 | CT ---
EXAMINATION TYPE: CT abdomen pelvis w con DATE OF EXAM: 11/04/2018 COMPARISON: None. HISTORY: Bright red blood in stool CT DLP: 1736.9 mGycm, Automated Exposure Control for Dose Reduction was Utilized. CONTRAST: CT scan of the abdomen and pelvis is performed without oral but with IV Contrast, patient injected wi th 100 mL of Isovue 300. FINDINGS: LUNG BASES: No significant abnormality is appreciated. LIVER/GB: No significant abnormality is appreciated. PANCREAS: No significant abnormality is seen. SPLEEN: No significant abnormality is seen. ADRENALS: No significant abnormality is seen. KIDNEYS: There is 3.1 cm hypodense exophytic lesion with Hounsfield units near 30 suspect hemorrhagic or proteinaceous cyst anteriorly at mid to lower pole level in the left kidney. Some smaller simple appearing parapelvic cysts are felt present bilaterally. BOWEL: Evaluation of bowel suboptimal secondary to lack of enteric contrast. There is no suspicious s mall or large bowel dilatation. Diverticulosis in the sigmoid colon is present without convincing CT evidence for acute diverticulitis. PROSTATE/SEMINAL VESICLES: No gross abnormality seen. LYMPH NODES: No greater than 1cm abdominal or pelvic lymph nodes are appreciated. OSSEOUS STRUCTURES: Moderate spurring in the thoracic spine. Multilevel vacuum disc phenomenon with m oderate disc space narrowing lumbosacral junction. Facet arthropathy lower lumbar levels. Mild-to-mod erate narrowing both hip joints. OTHER: Mild/moderate calcified plaque of the aorta extends into branch vessels. IMPRESSION: Sigmoid colonic diverticulosis without CT evidence for acute diverticulitis.
[2018-11-04] MEDS ORDERED: NALOXONE 0.4 MG/ML 1 ML VIAL IV PRN (20:50)
[2018-11-04] MEDS: METOPROLOL TARTRATE 25 MG TAB PO SCH (22:43)
[2018-11-04] MEDS: ATORVASTATIN 40 MG TAB PO SCH (22:43)
[2018-11-05] MEDS: HYDROcodone/APAP 7.5-325MG 1 EACH TAB PO PRN ×4 (00:54→21:16)
[2018-11-05 07:55] LABS: Basophils % (A) 1 %; Eosinophils # (A) 0.4 k/uL (0-0.7); Eosinophils % (A) 7 %; HCT 31.5 % (39.0-53.0); HGB 10.1 gm/dL (13.0-17.5); Lymphocytes # (A) 0.9 k/uL (1.0-4.8); Lymphocytes % (A) 18 %; MCH 30.6 pg (25.0-35.0); MCHC 31.9 g/dL (31.0-37.0); MCV 95.9 fL (80.0-100.0); Mean Platelet Volume 6.8; Monocytes # (A) 0.3 k/uL (0-1.0); Monocytes % (A) 6 %; Neutrophils # (A) 3.5 k/uL (1.3-7.7); Neutrophils % (A) 66 %; Platelet Count 295 k/uL (150-450); RBC 3.29 m/uL (4.30-5.90); RDW 13.9 % (11.5-15.5); WBC 5.3 k/uL (3.8-10.6)
[2018-11-05 08:04] LABS: Calcium 8.6 mg/dL (8.4-10.2); Potassium 4.4 mmol/L (3.5-5.1)
[2018-11-05] MEDS ORDERED: PANTOPRAZOLE 40 MG/10 ML VIAL IV SCH (09:00)
[2018-11-05] MEDS ORDERED: ONDANSETRON 4 MG/2 ML VIAL IVP PRN (09:44)
[2018-11-05] MEDS: METOPROLOL TARTRATE 25 MG TAB PO SCH ×2 (11:53→21:16)
[2018-11-05] MEDS: FINASTERIDE 5 MG TAB PO SCH (11:53)
[2018-11-05] MEDS: TAMSULOSIN 0.4 MG CAP.ER.24H PO SCH (11:53)
[2018-11-05] MEDS: LOSARTAN 50 MG TAB PO SCH (11:54)
--- NOTE | 2018-11-05 12:33 | P.CONS ---
History of Present Illness - Reason for Consult Consult date: 11/05/18 Hematochezia Requesting physician: Farooq E Sheet - Chief Complaint Bloody bowel movements - History of Present Illness 73-year-old male admitted with acute hematochezia status post recent right knee replacement on October 22 maintained on 81 mg twice daily. Patient was discharged from [facility] yesterday and passed to gross bloody painless bowel movements at home. Patient reports constipation while receiving therapy post knee surgery. No history GI bleed. Reports a history of diverticulitis in the past. Last colonoscopy 4 years [address] performed [address] Dr. Segundo and he was told he had colonic diverticulosis. 2 years ago while residing in [place] he describes having a drainage catheter placed his abdomen to drain an abscess possibly from complicated diverticulitis. Last passage of bowel movement this morning with remnants of old blood. Denies abdominal pain. Requesting diet. CT abdomen and pelvis sigmoid colonic diverticulosis without diverticulitis. Hemoglobin on 10/25/2018 was 11.1. Hemoglobin on 11/01/2018 was 10.6. Yesterday hemoglobin was 10.9 presently 10.1. BUN 22. Creatinine 1.0. FOBT positive. Review of Systems Constitutional: Denies fever, chills, sweats, weight gain, or loss. HEENT: Negative for migraines, blurred vision or loss, earaches, drainage, tinnitus, oral mucosal lesions, dysphagia, or odynophagia. Cardiac: Negative for chest pain, arrhythmias, or palpitation. Respiratory: Negative for shortness of breath, hemoptysis, cough, or sputum production. Gastrointestinal: See HPI for pertinent findings. Genitourinary: Negative for hematuria, urgency, frequency, polyuria, dysuria, or penile discharge. Musculoskeletal: Negative for muscle aches, swelling, arthritis, and arthralgias. Neurologic: Negative for stroke or TIA. Endocrine: Negative for thyroid problems. Skin: Negative for rash or itching. Psychiatric: Negative history for depression and anxiety Past Medical History Past Medical History: GERD/Reflux, Hyperlipidemia, Hypertension, Osteoarthritis (OA), Prostate Disorder, Sleep Apnea/CPAP/BIPAP Additional Past Medical History / Comment(s): one seizure, borderline diabetic, diverticulitis, hiatal hernia History of Any Multi-Drug Resistant Organisms: None Reported Past Surgical History: Hernia Repair, Joint Replacement Additional Past Surgical History / Comment(s): left knee replacement, bilat hernia, pectus excavatum repair Past Anesthesia/Blood Transfusion Reactions: Motion Sickness Additional Past Anesthesia/Blood Transfusion Reaction / Comm: woke up during surgey once Past Psychological History: No Psychological Hx Reported Smoking Status: Never smoker Past Alcohol Use History: None Reported Past Drug Use History: Marijuana - Past Family History Father Family Medical History: Cancer Additional Family Medical History / Comment(s): colon Medications and Allergies Home Medications Medication Instructions Recorded Confirmed Type Atorvastatin [Lipitor] 40 mg PO HS 10/09/18 11/04/18 History Cholecalciferol (Vitamin D3) 2,000 unit PO DAILY 10/09/18 11/04/18 History [Vitamin D3] Finasteride [Proscar] 5 mg PO QAM 10/09/18 11/04/18 History Losartan [Cozaar] 50 mg PO QAM 10/09/18 11/04/18 History Metoprolol Tartrate [Lopressor] 25 mg PO BID 10/09/18 11/04/18 History Omeprazole 20 mg PO QAM 10/09/18 11/04/18 History Tamsulosin [Flomax] 0.4 mg PO DAILY 10/09/18 11/04/18 History Aspirin [Adult Low Dose Aspirin EC] 81 mg PO BID #60 tablet.dr 10/23/18 11/04/18 Rx Docusate [Colace] 100 mg PO DAILY #30 capsule 10/23/18 11/04/18 Rx HYDROcodone/APAP 7.5-325MG [[place] 1 - 2 each PO Q6HR PRN #56 tab 10/23/1810/15 Rx 7.5] Allergies Allergy/AdvReac Type Severity Reaction Status Date / Time No Known Allergies Allergy Verified 11/04/18 16:48 Physical Exam Vitals: Vital Signs Temp Pulse Pulse Resp BP BP Pulse Ox 11/05/18 07:35 68 11/05/18 07:00 98.6 F 68 17 115/75 99 11/05/18 01:30 98.2 F 69 18 122/72 93 L 11/04/18 22:46 80 116/70 11/04/18 21:30 98.6 F 81 19 143/82 95 11/04/18 20:52 84 16 115/71 98 11/04/18 18:25 80 16 118/61 99 11/04/18 16:45 82 16 111/62 98 11/04/18 14:34 98.3 F 97 18 113/79 99 Intake and Output 11/04/18 11/05/18 11/05/18 22:59 06:59 14:59 Intake Total 10 Balance 10 Intake: Oral 10 Other: Voiding Method Toilet # Voids 1 1 General appearance: The patient is alert, oriented, in no acute distress. HET: Head is normocephalic and atraumatic. Pupils are equal and reactive. Oropharynx is clear without lesions. Neck: Supple without lymphadenopathy. Trachea midline. Heart: S1 S2. Regular rate and rhythm. Lungs: No crackles or wheezes are heard. Abdomen: Soft, nontender, nondistended with bowel sounds. No peritoneal signs. No palpable organomegaly or masses. Extremities: Right knee trace edema with dressing clean without bleeding. Normal skin color and turgor. No cyanosis, rash, ulceration, clubbing, or edema. Radial and pedal pulses are 2/4 bilaterally. Neurological: No focal deficits. Strength and sensation are grossly intact. Results CBC & Chem 7: 11/05/18 06:51 11/05/18 06:51 Labs: Abnormal Lab Results - Last 24 Hours (Table) 11/04/18 11/04/18 11/05/18 Range/Units 16:40 16:40 06:51 RBC 3.71 L 3.29 L (4.30-5.90) m/uL Hgb 10.9 L 10.1 L (13.0-17.5) gm/dL Hct 34.4 L 31.5 L (39.0-53.0) % Lymphocytes # 0.9 L 0.9 L (1.0-4.8) k/uL BUN 22 H (9-20) mg/dL Glucose 114 H (74-99) mg/dL 11/05/18 Range/Units 06:51 RBC (4.30-5.90) m/uL Hgb (13.0-17.5) gm/dL Hct (39.0-53.0) % Lymphocytes # (1.0-4.8) k/uL BUN (9-20) mg/dL Glucose 100 H (74-99) mg/dL CT scan - abdomen: report reviewed (Dr. Camp) Assessment and Plan (1) Hematochezia Narrative/Plan: Acute lower GI bleed suspect colonic diverticular bleeding exacerbated by constipation and antiplatelet aspirin therapy status post recent right total knee replacement. History of colonic diverticulosis and possible diverticular abscess 2 years ago in [place] drain percutaneously. Last colonoscopy evaluation 4 years ago patient reports diverticular disease. Current Visit: Yes Status: Acute Code(s): K92.1 - MELENA SNOMED Code(s): 314809860 (2) Status post total right knee replacement Current Visit: No Status: Acute Code(s): Z96.651 - PRESENCE OF RIGHT ARTIFICIAL KNEE JOINT SNOMED Code(s): 5920073163346 (3) Acute blood loss anemia Current Visit: Yes Status: Acute Code(s): D62 - ACUTE POSTHEMORRHAGIC ANEMIA SNOMED Code(s): 163309258 (4) Acquired diverticulosis of colon Current Visit: Yes Status: Acute Code(s): K57.30 - DVRTCLOS OF LG INT W/O PERFORATION OR ABSCESS W/O BLEEDING SNOMED Code(s): 227152171 Plan: 1. CBC monitoring. Protonix 40 mg daily. Full liquids. Outpatient colonoscopy advised 4-6 weeks. Thank you for this kind referral and the opportunity to participate in the care of your patient. This consultation was discussed with Dr. Camp. The impression and plan of care have been directed as dictated.
--- NOTE | 2018-11-05 14:33 | P.HPIM ---
History of Present Illness This is a pleasant 73 years old male with past medical history of GERD, hyperlipidemia, hypertension, osteoarthritis, sleep apnea on CPAP/BiPAP, diverticulosis. Recent right knee replacement on.. When he was discharged to rehab with aspirin twice daily for DVT prophylaxis. He was discharge from rehab 1 day prior when he developed bright red blood per rectum. Patient denies abdominal pain or nausea vomiting. Today patient is still have some residual blood per rectum but this is less than yesterday. At baseline patient walks using her walker when he was discharge from the rehab. Patient Vitas looks stable and is 10.9 and 10.1, compared to 12.5 and 11.1 earlier this month. CBC and liver enzymes were unremarkable. Lipase within normal limits. Occult blood in stools positive. Patient was started on Protonix and admitted with a GI consultation. GI team recommended continue with Protonix with full liquid diet and outpatient colonoscopy in 4-6 weeks. Review of Systems CONSTITUTIONAL: No fever, no malaise, no fatigue. HEENT: No recent visual problems or hearing problems. Denied any sore throat. CARDIOVASCULAR: No orthopnea, PND, no palpitations, no syncope. PULMONARY: No shortness of breath, no cough, no hemoptysis. GASTROINTESTINAL: No diarrhea, no nausea, no vomiting, no abdominal pain. Normoactive bowel sounds. NEUROLOGICAL: No headaches, no weakness, no numbness. HEMATOLOGICAL: Denies any bleeding or petechiae. GENITOURINARY: Denies any burning micturition, frequency, or urgency. MUSCULOSKELETAL/RHEUMATOLOGICAL: Denies any joint pain, swelling, or any muscle pain. ENDOCRINE: Denies any polyuria or polydipsia. Past Medical History Past Medical History: GERD/Reflux, Hyperlipidemia, Hypertension, Osteoarthritis (OA), Prostate Disorder, Sleep Apnea/CPAP/BIPAP Additional Past Medical History / Comment(s): one seizure, borderline diabetic, diverticulitis, hiatal hernia History of Any Multi-Drug Resistant Organisms: None Reported Past Surgical History: Hernia Repair, Joint Replacement Additional Past Surgical History / Comment(s): left knee replacement, bilat hernia, pectus excavatum repair Past Anesthesia/Blood Transfusion Reactions: Motion Sickness Additional Past Anesthesia/Blood Transfusion Reaction / Comment(s): woke up during surgey once Past Psychological History: No Psychological Hx Reported Smoking Status: Never smoker Past Alcohol Use History: None Reported Past Drug Use History: Marijuana - Past Family History Father Family Medical History: Cancer Additional Family Medical History / Comment(s): colon Medications and Allergies Home Medications Medication Instructions Recorded Confirmed Type Atorvastatin [Lipitor] 40 mg PO HS 10/09/18 11/04/18 History Cholecalciferol (Vitamin D3) 2,000 unit PO DAILY 10/09/18 11/04/18 History [Vitamin D3] Finasteride [Proscar] 5 mg PO QAM 10/09/18 11/04/18 History Losartan [Cozaar] 50 mg PO QAM 10/09/18 11/04/18 History Metoprolol Tartrate [Lopressor] 25 mg PO BID 10/09/18 11/04/18 History Omeprazole 20 mg PO QAM 10/09/18 11/04/18 History Tamsulosin [Flomax] 0.4 mg PO DAILY 10/09/18 11/04/18 History Aspirin [Adult Low Dose Aspirin EC] 81 mg PO BID #60 tablet.dr 10/23/18 11/04/18 Rx Docusate [Colace] 100 mg PO DAILY #30 capsule 10/23/18 11/04/18 Rx HYDROcodone/APAP 7.5-325MG [[place] 1 - 2 each PO Q6HR PRN #56 tab 10/23/18 11/04/18 Rx 7.5] Allergies Allergy/AdvReac Type Severity Reaction Status Date / Time No Known Allergies Allergy Verified 11/04/18 16:48 Physical Exam Vitals: Vital Signs Temp Pulse Pulse Resp BP BP Pulse Ox 11/05/18 14:14 98.5 F 81 15 114/70 96 11/05/18 07:35 68 11/05/18 07:00 98.6 F 68 17 115/75 99 11/05/18 01:30 98.2 F 69 18 122/72 93 L 11/04/18 22:46 80 116/70 11/04/18 21:30 98.6 F 81 19 143/82 95 11/04/18 20:52 84 16 115/71 98 11/04/18 18:25 80 16 118/61 99 11/04/18 16:45 82 16 111/62 98 11/04/18 14:34 98.3 F 97 18 113/79 99 Intake and Output 07/11/05/18 11/05/18 22:59 06:59 14:59 Intake Total 10 110 Balance 10 110 Intake: Oral 10 110 Other: Voiding Method Toilet # Voids 1 1 2 GENERAL: The patient is alert and oriented x3, not in any acute distress. Well developed, well nourished. HEENT: Pupils are round and equally reacting to light. EOMI. No scleral icterus. No conjunctival pallor. Normocephalic, atraumatic. No pharyngeal erythema. No th yromegaly. CARDIOVASCULAR: S1 and S2 present. No murmurs, rubs, or gallops. PULMONARY: Chest is clear to auscultation, no wheezing or crackles. ABDOMEN: Soft, nontender, nondistended, normoactive bowel sounds. No palpable organomegaly. MUSCULOSKELETAL: No joint swelling or deformity. EXTREMITIES: No cyanosis, clubbing, . He still has dressing around his right knee. Bilateral pitting leg edema, right more than left NEUROLOGICAL: Gross neurological examination did not reveal any focal deficits. SKIN: No rashes. Results CBC & Chem 7: 11/05/18 06:51 11/05/18 06:51 Labs: Abnormal Lab Results - Last 24 Hours (Table) 11/04/18 11/04/18 11/05/18 Range/Units 16:40 16:40 06:51 RBC 3.71 L 3.29 L (4.30-5.90) m/uL Hgb 10.9 L 10.1 L (13.0-17.5) gm/dL Hct 34.4 L 31.5 L (39.0-53.0) % Lymphocytes # 0.9 L 0.9 L (1.0-4.8) k/uL BUN 22 H (9-20) mg/dL Glucose 114 H (74-99) mg/dL 11/05/18 Range/Units 06:51 RBC (4.30-5.90) m/uL Hgb (13.0-17.5) gm/dL Hct (39.0-53.0) % Lymphocytes # (1.0-4.8) k/uL BUN (9-20) mg/dL Glucose 100 H (74-99) mg/dL Thrombosis Risk Factor Assmnt - Choose All That Apply Other Risk Factors: Yes Each Risk Factor Represents 2 Points: Age 61-74 years Thrombosis Risk Factor Assessment Total Risk Factor Score: 2 Thrombosis Risk Factor Assessment Level: Low Risk Assessment and Plan Assessment: Bright red blood per rectum, suspicious for lower GI bleed Acute blood loss anemia Recent history of knee replacement, improving Hypertension Hyperlipidemia History of GERD in History of sleep apnea on CPAP/BiPAP Plan: This is a pleasant 73 years old male who presents with GI bleed. Continue with Protonix. GI consult recommendation is appreciated and followed. Continue with liquid diets and recommended outpatient colonoscopy in 4-6 weeks. We will check Doppler of his lower extremities. We'll start patient on Lasix. Continue monitoring hemoglobin and bleeding per rectum Labs and medication were reviewed.. Continue same treatment. Continue with symptomatic treatment. Resume home medication. Monitor lytes and vitals. DVT and GI prophylaxis. Further recommendations of the clinical course of the patient DVT prophylaxis: No heparin in view of GI bleed GI Prophylaxis: Protonix Prognosis is guarded
[2018-11-05] MEDS: FUROSEMIDE 10 MG/ML 4 ML VIAL IV SCH ×2 (16:59→21:16)
--- NOTE | 2018-11-05 17:30 | US ---
EXAMINATION TYPE: US venous doppler duplex LE DATE OF EXAM: 11/05/2018 4:38 PM COMPARISON: NONE CLINICAL HISTORY: Rule out DVT. Post right knee replacement 10-21-18; right leg swelling SIDE PERFORMED: Bilateral TECHNIQUE: The lower extremity deep venous system is examined utilizing real time linear array sonog bo with graded compression, doppler sonography and color-flow sonography. VESSELS IMAGED: Common Femoral Vein Deep Femoral Vein Greater Saphenous Vein * Femoral Vein Popliteal Vein Small Saphenous Vein * Proximal Calf Veins (* superficial vessels) FINDINGS: Grayscale, color doppler, spectral doppler imaging performed of the deep veins of the lower extremities. There is normal flow, compressibility, vascular waveforms. IMPRESSION: NEGATIVE FOR DVT, BILATERAL LOWER EXTREMITIES.
[2018-11-05] MEDS: ATORVASTATIN 40 MG TAB PO SCH (21:16)
[2018-11-06] MEDS: HYDROcodone/APAP 7.5-325MG 1 EACH TAB PO PRN ×3 (04:30→21:35)
[2018-11-06] MEDS: METOPROLOL TARTRATE 25 MG TAB PO SCH ×2 (08:25→21:35)
[2018-11-06] MEDS: TAMSULOSIN 0.4 MG CAP.ER.24H PO SCH (08:25)
[2018-11-06] MEDS: FINASTERIDE 5 MG TAB PO SCH (08:25)
[2018-11-06] MEDS: FUROSEMIDE 10 MG/ML 4 ML VIAL IV SCH (08:25)
[2018-11-06] MEDS: LOSARTAN 50 MG TAB PO SCH (08:25)
[2018-11-06] MEDS ORDERED: PANTOPRAZOLE 40 MG TABLET PO SCH (09:00)
[2018-11-06 09:11] LABS: Basophils % (A) 1 %; Eosinophils # (A) 0.4 k/uL (0-0.7); Eosinophils % (A) 8 %; HCT 32.1 % (39.0-53.0); HGB 10.7 gm/dL (13.0-17.5); Lymphocytes # (A) 1.1 k/uL (1.0-4.8); Lymphocytes % (A) 21 %; MCH 31.7 pg (25.0-35.0); MCHC 33.2 g/dL (31.0-37.0); MCV 95.4 fL (80.0-100.0); Mean Platelet Volume 6.8; Monocytes # (A) 0.3 k/uL (0-1.0); Monocytes % (A) 6 %; Neutrophils # (A) 3.2 k/uL (1.3-7.7); Neutrophils % (A) 62 %; Platelet Count 303 k/uL (150-450); RBC 3.37 m/uL (4.30-5.90); WBC 5.2 k/uL (3.8-10.6)
--- NOTE | 2018-11-06 09:37 | P.PN ---
Subjective This is a pleasant 73 years old male with past medical history of GERD, hyperlipidemia, hypertension, osteoarthritis, sleep apnea on CPAP/BiPAP, div erticulosis. Recent right knee replacement on.. When he was discharged to rehab with aspirin twice daily for DVT prophylaxis. He was discharge from rehab 1 day prior when he developed bright red blood per rectum. Patient denies abdominal pain or nausea vomiting. Today patient is still have some residual blood per rectum but this is less than yesterday. At baseline patient walks using her walker when he was discharge from the rehab. Patient Vitas looks stable and is 10.9 and 10.1, compared to 12.5 and 11.1 earlier this month. CBC and liver enzymes were unremarkable. Lipase within normal limits. Occult blood in stools positive. Patient was started on Protonix and admitted with a GI consultation. GI team recommended continue with Protonix with full liquid diet and outpatient colonoscopy in 4-6 weeks. 11/06/2018 Patient is awake with no chest pain or dyspnea. He still have a little bit of blood in his stool. However he is hemodynamically stable. Hemoglobin is stable at 10.7. Patient states that he had EGD done about 2 months ago around July/2018 where he has polyps removed from his stomach as per him. However his last colonoscopy about 4 years ago. GI team evaluated the patient and recommended to continue with Protonix daily and outpatient colonoscopy in 4-6 weeks, patient is aware of this and willing to follow up. Patient has bilateral leg swelling improving with Lasix. Doppler was negative for DVT in either leg. There were lower Lasix to 40 mg daily We'll check with GI team, as well as we'll consult is original orthopedic team with the the right knee replacement earlier this month for plan of anticoagulation. We were intending to give the patient in-house currently for further monitoring and evaluation. Objective - Vital Signs Vital signs: Vital Signs Temp 97.7 F 11/06/18 07:00 Pulse 71 11/06/18 07:00 Resp 17 11/06/18 07:00 BP 115/65 11/06/18 07:00 Pulse Ox 92 L 11/06/18 07:00 Intake & Output 11/05/18 11/06/18 11/06/18 18:59 06:59 18:59 Intake Total 560 600 160 Balance 560 600 160 Intake: Oral 560 600 160 Other: Voiding Method Toilet # Voids 2 1 # Bowel Movements 1 - Exam GENERAL: The patient is alert and oriented x3, not in any acute distress. Well developed, well nourished. HEENT: Pupils are round and equally reacting to light. EOMI. No scleral icterus. No conjunctival pallor. Normocephalic, atraumatic. No pharyngeal erythema. No thyromegaly. CARDIOVASCULAR: S1 and S2 present. No murmurs, rubs, or gallops. PULMONARY: Chest is clear to auscultation, no wheezing or crackles. ABDOMEN: Soft, nontender, nondistended, normoactive bowel sounds. No palpable organomegaly. MUSCULOSKELETAL: No joint swelling or deformity. EXTREMITIES: No cyanosis, clubbing, . He still has dressing around his right knee. Bilateral pitting leg edema, right more than left NEUROLOGICAL: Gross neurological examination did not reveal any focal deficits. SKIN: No rashes. - Labs CBC & Chem 7: 11/06/18 08:24 11/05/18 06:51 Labs: Abnormal Lab Results - Last 24 Hours (Table) 11/06/18 Range/Units 08:24 RBC 3.37 L (4.30-5.90) m/uL Hgb 10.7 L (13.0-17.5) gm/dL Hct 32.1 L (39.0-53.0) % Assessment and Plan Assessment: Bright red blood per rectum, suspicious for lower GI bleed Acute blood loss anemia Recent history of knee replacement, improving Hypertension Hyperlipidemia History of GERD in History of sleep apnea on CPAP/BiPAP Bilateral leg edema, improving Plan: This is a pleasant 73 years old male who presents with GI bleed. Continue with Protonix. GI consult recommendation is appreciated and followed. Continue with liquid diets and recommended outpatient colonoscopy in 4-6 weeks. We will check Doppler of his lower extremities. We'll start patient on Lasix. Continue monitoring hemoglobin and bleeding per rectum Labs and medication were reviewed.. Continue same treatment. Continue with symptomatic treatment. Resume home medication. Monitor lytes and vitals. DVT and GI prophylaxis. Further recommendations of the clinical course of the patient DVT prophylaxis: No heparin in view of GI bleed GI Prophylaxis: Protonix Prognosis is guarded
--- NOTE | 2018-11-06 11:32 | P.CNOR ---
History of Present Illness - [facility] Consult date: 11/06/18 Consult reason: other History of present illness: Patient is a 73-year-old male who presented to [facility] with regards to her blood stools. Patient recently underwent a right total knee arthroplasty by Dr. Whittaker 10/22/2018. Patient was recently discharged home from rehab and been doing fairly well. Upon arrival to home, he had noticed the blood in stool. He does have a notable GI history. Patient reported the hospital for further evaluation, he was admitted under internal medicine with GI and orthopedics on consult. At bedside today, patient's resting comfortably. Patient states and is doing fairly well at this time, the pain is continued to improve. He was actually scheduled for a postoperative visit today with myself in the outpatient setting. Patient has been taking a 81 mg aspirin for DVT prophylaxis, he also takes a oral medication for GERD. Patient has no other orthopedic complaints this time. Review of Systems Constitutional: Reports as per [facility] Past Medical History Past Medical History: GERD/Reflux, Hyperlipidemia, Hypertension, Osteoarthritis (OA), Prostate Disorder, Sleep Apnea/CPAP/BIPAP Additional Past Medical History / Comment(s): one seizure, borderline diabetic, diverticulitis, hiatal hernia History of Any Multi-Drug Resistant Organisms: None Reported Past Surgical History: Hernia Repair, Joint Replacement Additional Past Surgical History / Comment(s): left knee replacement, bilat hernia, pectus excavatum repair Past Anesthesia/Blood Transfusion Reactions: Motion Sickness Additional Past Anesthesia/Blood Transfusion Reaction / Comm: woke up during surgey once Past Psychological History: No Psychological Hx Reported Smoking Status: Never smoker Past Alcohol Use History: None Reported Past Drug Use History: Marijuana - Past Family History Father Family Medical History: Cancer Additional Family Medical History / Comment(s): colon Medications and Allergies Home Medications Medication Instructions Recorded Confirmed Type Atorvastatin [Lipitor] 40 mg PO HS 10/09/18 11/04/18 History Cholecalciferol (Vitamin D3) 2,000 unit PO DAILY 10/09/18 11/04/18 History [Vitamin D3] Finasteride [Proscar] 5 mg PO QAM 10/09/18 11/04/18 History Losartan [Cozaar] 50 mg PO QAM 10/09/18 11/04/18 History Metoprolol Tartrate [Lopressor] 25 mg PO BID 10/09/18 11/04/18 History Omeprazole 20 mg PO QAM 10/09/18 11/04/18 History Tamsulosin [Flomax] 0.4 mg PO DAILY 10/09/18 11/04/18 History Aspirin [Adult Low Dose Aspirin EC] 81 mg PO BID #60 tablet. 10/23/18 11/04/18 Rx Docusate [Colace] 100 mg PO DAILY #30 capsule 10/23/18 11/04/18 Rx HYDROcodone/APAP 7.5-325MG [[place] 1 - 2 each PO Q6HR PRN #56 tab 10/23/18 11/04/18 Rx 7.5] Allergies Allergy/AdvReac Type Severity Reaction Status Date / Time No Known Allergies Allergy Verified 11/04/18 16:48 Physical Examination Right lower extremity: Incision is clean, dry, and intact. The exofin fusion tape is in good condition. There is minimal soft tissue swelling and ecchymosis surrounding the medial and lateral aspects of the incision. Calf is soft, no tenderness with palpation. Plantar flexion, dorsiflexion, EHL, FHL are intact. Sensory exam to light touch throughout the extremity is intact, dorsal pedis pulses 2+. Results - Labs Labs: Abnormal Lab Results - Last 24 Hours (Table) 11/06/18 Range/Units 08:24 RBC 3.37 L (4.30-5.90) m/uL Hgb 10.7 L (13.0-17.5) gm/dL Hct 32.1 L (39.0-53.0) % H & H 11/04/18 11/05/18 11/06/18 Range/Units 16:40 06:51 08:24 Hgb 10.9 L 10.1 L 10.7 L (13.0-17.5) gm/dL Hct 34.4 L 31.5 L 32.1 L (39.0-53.0) % Coagulation 11/04/18 Range/Units 16:40 INR 0.9 (<1.2) Result Diagrams: 11/06/18 08:24 11/05/18 06:51 Assessment and Plan Plan: Assessment: 1. Stable right total knee arthroplasty 2. Lower GI bleed 3. Other medical comorbidities Plan: Patient's right knee is stable at this time. I did remove the exofin tape at bedside today. Recommend icing and elevating often. Recommend continuing with physical therapy daily. With regards to GI and DVT prophylaxis, due to recent GI bleed recommend discontinuation of the oral aspirin. A compression stocking will be ordered for bilateral legs. Other senior medical writer recommendations Plan for follow-up in the outpatient setting in the next 2 weeks Time with Patient: Less than 30
[2018-11-06] MEDS ORDERED: PROCHLORPERAZINE 5 MG TAB PO PRN (14:14)
[2018-11-06] MEDS: PANTOPRAZOLE 40 MG/10 ML VIAL IVP SCH (21:36)
[2018-11-06] MEDS: ATORVASTATIN 40 MG TAB PO SCH (21:36)
[2018-11-06] MEDS: SODIUM CHLORIDE 0.9% 1,000 ML IV SCH (21:37)
[2018-11-06] MEDS ORDERED: PEG 3350-NA SULF,BICARB,CL/KCL 4,000 ML BOTTLE PO ONE (21:49)
[2018-11-06 21:50] LABS: Basophils % (A) 1 %; Eosinophils # (A) 0.4 k/uL (0-0.7); Eosinophils % (A) 6 %; HCT 31.7 % (39.0-53.0); HGB 10.4 gm/dL (13.0-17.5); Lymphocytes # (A) 1.1 k/uL (1.0-4.8); Lymphocytes % (A) 18 %; MCHC 32.7 g/dL (31.0-37.0); MCV 94.9 fL (80.0-100.0); Mean Platelet Volume 6.6; Monocytes # (A) 0.6 k/uL (0-1.0); Monocytes % (A) 9 %; Neutrophils # (A) 3.8 k/uL (1.3-7.7); Neutrophils % (A) 63 %; Platelet Count 326 k/uL (150-450); RBC 3.34 m/uL (4.30-5.90); RDW 14.6 % (11.5-15.5); WBC 6.1 k/uL (3.8-10.6)
[2018-11-06] MEDS ORDERED: BISACODYL 5 MG TABLET.DR PO STA (21:55)
--- NOTE | 2018-11-06 22:04 | P.PN ---
Subjective Progress Note Date: 11/06/18 Principal diagnosis: Hematochezia, anemia acute blood loss Patient lying in bed, no further bleeding and had tolerated liquids. Called later in the day with reports of 2 bloody bowel movements Objective - Vital Signs Vital signs: Vital Signs Temp 97.7 F 11/06/18 07:00 Pulse 71 11/06/18 07:00 Resp 17 11/06/18 07:00 BP 115/65 11/06/18 07:00 Pulse Ox 92 L 11/06/18 07:00 Intake & Output 11/05/18 11/06/18 11/06/18 18:59 06:59 18:59 Intake Total 560 600 160 Balance 560 600 160 Intake: Oral 560 600 160 Other: Voiding Method Toilet # Voids 2 1 # Bowel Movements 1 - Exam On physical examination, patient appears comfortable in no apparent distress. HEAD: Normocephalic, atraumatic. EYES: No scleral icterus. No conjunctival injection. MOUTH: No lesions, tongue midline. NECK: Trachea midline, no gross abnormalities. CHEST: Clear to auscultation with no wheezing or rhonchi appreciated. HEART: Regular rate and rhythm. ABDOMEN: Soft, obese. Bowel sounds are positive. No organomegaly. No guarding or rigidity. EXTREMITIES: No pedal edema. SKIN: No rashes, no jaundice. NEUROLOGIC: Alert and oriented x3. No focal deficits. - Labs CBC & Chem 7: 11/06/18 21:01 11/05/18 06:51 Labs: Abnormal Lab Results - Last 24 Hours (Table) 11/06/18 Range/Units 08:24 RBC 3.37 L (4.30-5.90) m/uL Hgb 10.7 L (13.0-17.5) gm/dL Hct 32.1 L (39.0-53.0) % Assessment and Plan (1) Hematochezia Narrative/Plan: 73-year-old male presenting with bright red blood per rectum with suspicion for diverticular bleeding in the setting of constipation and twice daily aspirin therapy after recent total knee replacement. Patient has a history of colonic diverticulosis with possible diverticular abscess 2 years ago in [place] when he states a drain was placed percutaneously. Last colonoscopy was 4 years ago and significant for diverticular disease. Initially when seen today patient had reported no bowel movements, but subsequently had 2 bloody bowel movements with plan for transfer to the ICU and endoscopy tomorrow. Current Visit: Yes Status: Acute Code(s): K92.1 - MELENA SNOMED Code(s): 589743862 (2) Acquired diverticulosis of colon Current Visit: Yes Status: Acute Code(s): K57.30 - DVRTCLOS OF LG INT W/O PERFORATION OR ABSCESS W/O BLEEDING SNOMED Code(s): 903282269 (3) Acute blood loss anemia Current Visit: Yes Status: Acute Code(s): D62 - ACUTE POSTHEMORRHAGIC ANEMIA SNOMED Code(s): 495155918 Plan: Supportive care Nothing by mouth Bowel prep ordered, okay to drink bowel prep until 11/07/2018 at 9 AM Continue to monitor hemoglobin and hematocrit, H/H after last bloody bowel movement still pending Continue Protonix therapy For EGD and colonoscopy tomorrow afternoon Patient planned for transfer to the ICU Thank you for allowing us to dissipate in the care of the patient we will continue to follow
[2018-11-06 22:33] LABS: Glucose,Whole Blood 103 mg/dL (75-99)
[2018-11-07 05:50] LABS: Basophils % (A) 1 %; Eosinophils # (A) 0.4 k/uL (0-0.7); Eosinophils % (A) 6 %; HCT 29.1 % (39.0-53.0); HGB 9.6 gm/dL (13.0-17.5); Lymphocytes # (A) 0.9 k/uL (1.0-4.8); Lymphocytes % (A) 16 %; MCH 30.8 pg (25.0-35.0); MCHC 32.9 g/dL (31.0-37.0); MCV 93.7 fL (80.0-100.0); Mean Platelet Volume 6.4; Monocytes # (A) 0.5 k/uL (0-1.0); Monocytes % (A) 9 %; Neutrophils # (A) 3.9 k/uL (1.3-7.7); Neutrophils % (A) 65 %; Platelet Count 282 k/uL (150-450); RDW 13.8 % (11.5-15.5)
[2018-11-07 06:14] LABS: African American GFR (CKD) >90 (>60 ml/min/1.73 sqM); Anion Gap 5 mmol/L; Blood Urea Nitrogen 20 mg/dL (9-20); Calcium 8.4 mg/dL (8.4-10.2); Carbon Dioxide 33 mmol/L (22-30); Chloride 98 mmol/L (98-107); Glucose 109 mg/dL (74-99); Non-African American GFR(CKD) 79 (>60 ml/min/1.73 sqM); Potassium 4.2 mmol/L (3.5-5.1); Sodium 136 mmol/L (137-145)
[2018-11-07] MEDS: SODIUM CHLORIDE 0.9% 1,000 ML IV SCH ×2 (06:21→17:50)
[2018-11-07] MEDS: METOPROLOL TARTRATE 25 MG TAB PO SCH ×2 (10:18→20:21)
[2018-11-07] MEDS: PANTOPRAZOLE 40 MG/10 ML VIAL IVP SCH ×2 (10:18→20:22)
[2018-11-07] MEDS: LOSARTAN 50 MG TAB PO SCH (10:18)
[2018-11-07] MEDS: FUROSEMIDE 10 MG/ML 4 ML VIAL IV SCH ×2 (10:19→10:20)
[2018-11-07] MEDS: TAMSULOSIN 0.4 MG CAP.ER.24H PO SCH (10:19)
--- NOTE | 2018-11-07 11:04 | P.PN ---
Subjective This is a pleasant 73 years old male with past medical history of GERD, hyperlipidemia, hypertension, osteoarthritis, sleep apnea on CPAP/BiPAP, div erticulosis. Recent right knee replacement on.. When he was discharged to rehab with aspirin twice daily for DVT prophylaxis. He was discharge from rehab 1 day prior when he developed bright red blood per rectum. Patient denies abdominal pain or nausea vomiting. Today patient is still have some residual blood per rectum but this is less than yesterday. At baseline patient walks using her walker when he was discharge from the rehab. Patient Vitas looks stable and is 10.9 and 10.1, compared to 12.5 and 11.1 earlier this month. CBC and liver enzymes were unremarkable. Lipase within normal limits. Occult blood in stools positive. Patient was started on Protonix and admitted with a GI consultation. GI team recommended continue with Protonix with full liquid diet and outpatient colonoscopy in 4-6 weeks. 11/06/2018 Patient is awake with no chest pain or dyspnea. He still have a little bit of blood in his stool. However he is hemodynamically stable. Hemoglobin is stable at 10.7. Patient states that he had EGD done about 2 months ago around July/2018 where he has polyps removed from his stomach as per him. However his last colonoscopy about 4 years ago. GI team evaluated the patient and recommended to continue with Protonix daily and outpatient colonoscopy in 4-6 weeks, patient is aware of this and willing to follow up. Patient has bilateral leg swelling improving with Lasix. Doppler was negative for DVT in either leg. There were lower Lasix to 40 mg daily We'll check with GI team, as well as we'll consult is original orthopedic team with the the right knee replacement earlier this month for plan of anticoagulation. We were intending to give the patient in-house currently for further monitoring and evaluation. 11/07/2018 I was called overnight for patient has large bowel movement and oriented patient to be transferred to the ICU. Patient today seen and examined in the intensive care unit where he was lying comfortably not in distress. Denied chest pain or dyspnea. No abdominal pain or nausea vomiting. He said that yesterday he had large bowel movement of fresh blood, which was different from the scan drops dehydrated. His pain in the right leg/knee is controlled and this flexible is coming down. His been evaluated by orthopedic team and the recommended to keep holding the aspirin which was held since admission. Hemoglobin went down to 9 .6. 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 Blood pressure this morning is 164/75, last night it went down to 103/61, so we will hold Lasix. Continue with rest of his blood pressure medication. Increase Protonix to twice daily. Plan continue with IV fluids of normal saline at 100 mL per hour. Review of systems CONSTITUTIONAL: No fever, no malaise, no fatigue. HEENT: No recent visual problems or hearing problems. Denied any sore throat. CARDIOVASCULAR: No orthopnea, PND, no palpitations, no syncope. PULMONARY: No shortness of breath, no cough, no hemoptysis. GASTROINTESTINAL: No diarrhea, no nausea, no vomiting, no abdominal pain. Normoactive bowel sounds. NEUROLOGICAL: No headaches, no weakness, no numbness. HEMATOLOGICAL: Denies any bleeding or petechiae. GENITOURINARY: Denies any burning micturition, frequency, or urgency. MUSCULOSKELETAL/RHEUMATOLOGICAL: Denies any joint pain, swelling, or any muscle pain. ENDOCRINE: Denies any polyuria or polydipsia. Active Medications Generic Name Dose Route Start Last Admin Trade Name Freq PRN Reason Stop Dose Admin Hydrocodone Bitart/Acetaminophen 2 each 11/04/18 20:54 11/06/18 21:35 [place] 7.5-325 PO 2 each Q6HR PRN Administration Pain Atorvastatin Calcium 40 mg 11/04/18 21:00 11/06/18 21:36 Lipitor PO 40 mg HS CASTRO Administration Finasteride 5 mg 11/05/18 09:00 11/06/18 08:25 Proscar PO 5 mg QAM [facility]O Administration Sodium Chloride 1,000 mls @ 100 mls/hr 11/06/18 20:30 11/07/18 06:21 Saline 0.9% IV 100 mls/hr .Q10H [facility] Administration Losartan Potassium 50 mg 11/05/18 09:00 11/07/18 10:18 Cozaar PO 50 mg QAM CASTRO Administration Metoprolol Tartrate 25 mg 11/04/18 21:00 11/07/18 10:18 Lopressor PO 25 mg BID CASTRO Administration Naloxone HCl 0.2 mg 11/04/18 20:50 Narcan IV Q2M PRN Opioid Reversal Ondansetron HCl 4 mg 11/05/18 09:44 11/06/18 10:29 Zofran IVP 4 mg Q6HR PRN Administration Nausea And Vomiting Pantoprazole Sodium 40 mg 11/06/18 21:00 11/07/18 10:18 Protonix IVP 40 mg BID CASTRO Administration Prochlorperazine Maleate 5 mg 11/06/18 14:14 Compazine PO Q8HR PRN Nausea And Vomiting Tamsulosin HCl 0.4 mg 11/05/18 09:00 11/07/18 10:19 Flomax PO 0.4 mg DAILY CASTRO Administration Objective - Vital Signs Vital signs: Vital Signs Temp 98.4 F 11/07/18 04:00 Pulse 76 11/07/18 10:00 Resp 13 11/07/18 10:00 BP 164/75 11/07/18 10:00 Pulse Ox 95 11/07/18 10:00 Intake & Output 11/06/18 11/07/18 11/07/18 18:59 06:59 18:59 Intake Total 160 3600 1300 Output Total 600 Balance 160 3600 700 Weight 119.1 kg Intake: IV 800 400 Sodium Chloride 0.9% 1, 800 400 000 ml @ 100 mls/hr IV . Q10H [facility] Rx#:[id number] Oral 160 2800 900 Output: Stool 600 Other: Voiding Method Toilet Toilet # Voids 2 1 1 # Bowel Movements 1 1 1 - Exam GENERAL: The patient is alert and oriented x3, not in any acute distress. Well developed, well nourished. HEENT: Pupils are round and equally reacting to light. EOMI. No scleral icterus. No conjunctival pallor. Normocephalic, atraumatic. No pharyngeal erythema. No thyromegaly. CARDIOVASCULAR: S1 and S2 present. No murmurs, rubs, or gallops. PULMONARY: Chest is clear to auscultation, no wheezing or crackles. ABDOMEN: Soft, nontender, nondistended, normoactive bowel sounds. No palpable organomegaly. MUSCULOSKELETAL: No joint swelling or deformity. EXTREMITIES: No cyanosis, clubbing, . He still has dressing around his right knee. Bilateral pitting leg edema, right more than left NEUROLOGICAL: Gross neurological examination did not reveal any focal deficits. SKIN: No rashes. - Labs CBC & Chem 7: 11/07/18 05:15 07/25/19 05:15 Labs: Abnormal Lab Results - Last 24 Hours (Table) 11/06/18 11/06/18 11/07/18 Range/Units 21:01 22:30 05:15 RBC 3.34 L 3.10 L (4.30-5.90) m/uL Hgb 10.4 L 9.6 L (13.0-17.5) gm/dL Hct 31.7 L 29.1 L (39.0-53.0) % Lymphocytes # 0.9 L (1.0-4.8) k/uL Sodium (137-145) mmol/L Carbon Dioxide (22-30) mmol/L Glucose (74-99) mg/dL POC Glucose (mg/dL) 103 H (75-99) mg/dL 11/07/18 Range/Units 05:15 RBC (4.30-5.90) m/uL Hgb (13.0-17.5) gm/dL Hct (39.0-53.0) % Lymphocytes # (1.0-4.8) k/uL Sodium 136 L (137-145) mmol/L Carbon Dioxide 33 H (22-30) mmol/L Glucose 109 H (74-99) mg/dL POC Glucose (mg/dL) (75-99) mg/dL Assessment and Plan Assessment: Bright red blood per rectum, patient is going for EGD/colonoscopy Acute blood loss anemia Recent history of knee replacement, improving Hypertension Hyperlipidemia History of GERD in History of sleep apnea on CPAP/BiPAP Bilateral leg edema, improving Plan: This is a pleasant 73 years old male who presents with GI bleed. Continue with Protonix twice daily. GI consult recommendation is appreciated and followed. Patient is going for EGD/colonoscopy. Continue with IV fluid. Monitor hemoglobin Labs and medication were reviewed.. Continue same treatment. Continue with symptomatic treatment. Resume home medication. Monitor lytes and vitals. DVT and GI prophylaxis. Further recommendations of the clinical course of the patient DVT prophylaxis: No heparin in view of GI bleed GI Prophylaxis: Protonix Prognosis is guarded
[2018-11-07] MEDS: FINASTERIDE 5 MG TAB PO SCH (12:21)
--- NOTE | 2018-11-07 14:40 | P.CNPUL ---
History of Present Illness Consult date: 11/07/18 Chief complaint: GI bleeding History of present illness: 73-year-old male patient who was hospitalized for GI bleed. The patient got moved to the intensive care unit yesterday. The patient was having bright red blood per rectum. The patient was taking aspirin. The patient is post right knee replacement that was done on 10/22/2018. The surgery went without any complications. The patient is known to have diverticulosis. He was treated for about of diverticulitis with abscess formation that was drained percutaneously back in 2017. He has undergone a recent EGD that showed gastric polyps without any other abnormalities noted. The patient came into the hospital passing gross bloody stool that was painless without any abdominal distention nausea or vomiting or diarrhea. He is last colonoscopy was around 40 years ago that was done locally in that showed colonic diverticulosis. The patient's CAT scan of the abdomen that showed sigmoid diverticulosis without diverticulitis. Hemoglobin on 10/25/2018 was 11.1 and it dropped down to 10.6 on 11/01/2018. Hemoglobin subsequently dropped down to 10.4 and this morning is down to 9.6. Hemodynamically, the patient is not showing any tachycardia. BP is under good control with a BP of 121/63. Pulse ox 95% on room air. Review of Systems Constitutional: Denies chills, Denies fever Eyes: denies as per HPI, denies blurred vision, denies bulging eye, denies decreased vision, denies diplopia, denies discharge, denies dry eye, denies irritation, denies itching, denies pain, denies photophobia, denies loss of peripheral vision, denies loss of vision, denies tunnel vision/blind spots Ears: deny: decreased hearing, ear discharge, earache, tinnitus Ears, nose, mouth and throat: Denies headache, Denies sore throat Breasts: absent: as per HPI, gynecomastia Cardiovascular: Reports as per HPI Respiratory: Denies cough Gastrointestinal: Reports as per HPI, Reports BRBPR, Denies abdominal pain, Denies diarrhea, Denies nausea, Denies vomiting Genitourinary: Reports as per HPI Musculoskeletal: Reports as per HPI Musculoskeletal: absent: ankle pain, ankle stiffness, ankle swelling Integumentary: Denies pruritus, Denies rash Neurological: Reports as per HPI Psychiatric: Denies anxiety, Denies depression Endocrine: Denies fatigue, Denies weight change Hematologic/Lymphatic: Reports as per HPI Allergic/Immunologic: Reports as per HPI Past Medical History Past Medical History: GERD/Reflux, Hyperlipidemia, Hypertension, Osteoarthritis (OA), Prostate Disorder, Sleep Apnea/CPAP/BIPAP Additional Past Medical History / Comment(s): diverticulosis and previous history of diverticulitis, hiatal hernia, remote history of single seizure activity not receiving any treatment for now, osteoarthritis, BPH, hyperlipidemia History of Any Multi-Drug Resistant Organisms: None Reported Past Surgical History: Hernia Repair, Joint Replacement Additional Past Surgical History / Comment(s): left knee replacement, bilat hernia, pectus excavatum repair Past Anesthesia/Blood Transfusion Reactions: Motion Sickness Additional Past Anesthesia/Blood Transfusion Reaction / Comment(s): woke up during surgey once Past Psychological History: No Psychological Hx Reported Smoking Status: Never smoker Past Alcohol Use History: None Reported Past Drug Use History: Marijuana - Past Family History Father Family Medical History: Cancer Additional Family Medical History / Comment(s): colon Medications and Allergies Home Medications Medication Instructions Recorded Confirmed Type Atorvastatin [Lipitor] 40 mg PO HS 10/09/18 11/04/18 History Cholecalciferol (Vitamin D3) 2,000 unit PO DAILY 10/09/18 11/04/18 History [Vitamin D3] Finasteride [Proscar] 5 mg PO QAM 10/09/18 11/04/18 History Losartan [Cozaar] 50 mg PO QAM 10/09/18 11/04/18 History Metoprolol Tartrate [Lopressor] 25 mg PO BID 10/09/18 11/04/18 History Omeprazole 20 mg PO QAM 10/09/18 11/04/18 History Tamsulosin [Flomax] 0.4 mg PO DAILY 10/09/18 11/04/18 History Aspirin [Adult Low Dose Aspirin EC] 81 mg PO BID #60 tablet.dr 10/23/18 11/04/18 Rx Docusate [Colace] 100 mg PO DAILY #30 capsule 10/23/18 11/04/18 Rx HYDROcodone/APAP 7.5-325MG [[place] 1 - 2 each PO Q6HR PRN #56 tab 10/23/18 11/04/18 Rx 7.5] Allergies Allergy/AdvReac Type Severity Reaction Status Date / Time No Known Allergies Allergy Verified 11/04/18 16:48 Physical Exam Vitals: Vital Signs Temp Pulse Pulse Resp BP BP Pulse Ox 11/07/18 13:00 66 16 121/63 95 11/07/18 12:00 67 18 136/72 97 11/07/18 11:00 85 20 141/77 11/07/18 10:00 76 13 164/75 95 11/07/18 09:00 86 22 146/79 96 11/07/18 08:00 82 17 142/78 96 11/07/18 07:00 15 103/61 11/07/18 06:00 67 12 115/71 11/07/18 05:00 74 18 97/61 11/07/18 04:00 98.4 F 67 12 120/89 95 11/07/18 03:00 10 L 115/65 11/07/18 02:00 69 12 123/70 95 11/07/18 01:00 17 115/72 11/07/18 00:00 97.8 F 71 13 95 11/06/18 23:00 75 11 L 142/77 11/06/18 22:28 142/77 96 11/06/18 19:13 98.1 F 92 18 120/72 95 11/06/18 15:00 98.7 F 90 16 92/61 94 L Intake and Output 11/06/18 11/07/18 11/07/18 22:59 06:59 14:59 Intake Total 3600 1600 Output Total 1300 Balance 3600 300 Intake: IV 800 700 Sodium Chloride 0.9% 1, 800 700 000 ml @ 100 mls/hr IV . Q10H [facility] Rx#:[id number] Oral 2800 900 Output: Urine 700 Stool 600 Other: Voiding Method Toilet Toilet Toilet # Voids 1 1 # Bowel Movements 1 1 Weight 119.1 kg The patient appeared well nourished and normally developed. Vital signs as documented. Head exam is unremarkable. No scleral icterus or corneal arcus note d. Neck is without jugular venous distension, thyromegaly, or carotid bruits. Carotid upstrokes are brisk bilaterally. Lungs are clear to auscultation and percussion. Cardiac exam reveals the PMI to be normally sized and situated. Rhythm is regular. First and second heart sounds normal. No murmurs, rubs or gallops. Abdominal exam reveals normal bowel sounds, no masses, no organomegaly and no aortic enlargement. Extremities are nonedematous and both femoral and pedal pulses are normal. The surgical wound site over the right the areas dry clean and intact and its typical of postsurgical changes. No joint swelling. Neurologically the patient is awake and alert and there is no focal neurological deficits.Examination of the skin revealed no evidence of significant rashes, suspicious appearing nevi or other concerning lesions. Results - Laboratory Findings CBC and BMP: 11/07/18 05:15 11/07/18 05:15 PT/INR, D-dimer PT 10.2 sec (9.0-12.0) 11/04/18 16:40 INR 0.9 (<1.2) 11/04/18 16:40 Abnormal lab findings: Abnormal Labs 11/04/18 11/04/18 11/05/18 16:40 16:40 06:51 RBC 3.71 L 3.29 L Hgb 10.9 L 10.1 L Hct 34.4 L 31.5 L Lymphocytes # 0.9 L 0.9 L Sodium Carbon Dioxide BUN 22 H Glucose 114 H POC Glucose (mg/dL) 11/05/18 11/06/18 11/06/18 06:51 08:24 21:01 RBC 3.37 L 3.34 L Hgb 10.7 L 10.4 L Hct 32.1 L 31.7 L Lymphocytes # Sodium Carbon Dioxide BUN Glucose 100 H POC Glucose (mg/dL) 11/06/18 11/07/18 11/07/18 22:30 05:15 05:15 RBC 3.10 L Hgb 9.6 L Hct 29.1 L Lymphocytes # 0.9 L Sodium 136 L Carbon Dioxide 33 H BUN Glucose 109 H POC Glucose (mg/dL) 103 H Assessment and Plan Plan: 1 acute GI bleeding of a lower GI source. Consider diverticular bleeding. 2 blood loss anemia with a drop in hemoglobin down to 9.6 3 previous history of complicated diverticulitis with abscess formation drained percutaneously 4 recent EGD showing gastric polyps 5 history of colonic diverticulosis established by previous colonoscopy that was done 4 years ago 6 hypertension 7 hyperlipidemia 8 BPH Plan Keep the patient ICU. Monitor this patient closely. Monitor hemoglobin. Watch hemodynamics. GI is on the case. We'll continue to follow make further recommendations based on his progression. I fluids running at 100 mL an hour and the patient is producing good amount of urine output.
[2018-11-07] MEDS ORDERED: PROPOFOL 10 MG/ML 20 ML VIAL IV ONE (14:42)
[2018-11-07] MEDS ORDERED: fentaNYL (PF) 50 MCG/ML 2 ML AMP ONE (14:42)
[2018-11-07] MEDS ORDERED: MIDAZOLAM 2 MG/2 ML VIAL ONE (14:42)
[2018-11-07] MEDS ORDERED: ePHEDrine SULFATE/0.9% NACL/PF 50 MG/5 ML SYRINGE IV ONE (14:42)
[2018-11-07] MEDS ORDERED: LIDOCAINE 1% INJ 10MG/ML (20 ML MDV) ONE (14:42)
[2018-11-07] MEDS ORDERED: IV FLUID CONTINUATION 1,000 ML IV ONE ×2 (14:56)
[2018-11-07] MEDS ORDERED: SODIUM CHLORIDE 0.9% 500 ML 500 ML IV ONE (15:47)
--- NOTE | 2018-11-07 15:56 | P.PCN ---
Date of Procedure: 11/07/18 Description of Procedure: Brief history: 73-year-old male admitted with acute hematochezia status post recent right knee replacement on October 22 maintained on 81 mg twice daily. Patient was discharged from [facility] yesterday and passed to gross bloody painless bowel movements at home. Patient reports constipation while receiving therapy post knee surgery. No history GI bleed. Reports a history of diverticulitis in the past. Last colonoscopy 4 years ago performed by Dr. Segundo and he was told he had colonic diverticulosis. 2 years ago while residing in [place] he describes having a drainage catheter placed his abdomen to drain an abscess possibly from complicated diverticulitis. FOBT positive. Patient continued to have bleeding during this stay and decision was made for EGD and colonoscopy for further evaluation. Procedure performed: Esophagogastroduodenoscopy with biopsy Colonoscopy Estimated blood loss: Minimal. Preoperative diagnosis: Hematochezia, anemia of acute blood loss Anesthesia: MAC Procedure: After informed consent was obtained from the patient was brought into the endoscopy unit and IV sedation was administered by anesthesia under continuous monitoring. Initially upper endoscopy was done. The Olympus GF 190 video endoscope was inserted inserted into the mouth and esophagus intubated without any difficulty and was gradually advanced into the stomach and duodenum and carefully examined. The bulb and second part of the duodenum appeared normal, with biopsies . The scope was then withdrawn into the stomach adequately insufflated with air and upon careful examination the antrum and body, cardia and fundus appeared normal, except for some mild linear erythema in the antrum and body suggestive of mild gastritis with biopsies taken . The scope was then withdrawn into the esophagus. The GE junction was located at 40 cm to the incis ors. It appeared regular with no erythema erosions or ulcerations. Rest of the esophagus appeared normal. Patient tolerated the procedure well. At this time the patient continued to remain sedation. Initial digital rectal examination was normal. Olympus CF 190 video colonoscope was then inserted into the rectum and gradually advanced , however secondary to numerous diverticula and fixed colon scope was exchanged for a pediatric colonoscope. Scope was then carefully advanced from the rectum to the cecum. Careful examination was performed as the scope was gradually being withdrawn. The prep was excellent. The cecum, ascending colon, transverse colon, descending colon, sigmoid colon and rectum appeared grossly normal. There was some old blood noted from the rectum to the ascending colon. Terminal ileum was intubated with no blood noted. Severe diverticulosis in the sigmoid marked by numerous large and small mouth diverticula with a few other diverticula scattered throughout the colon. Mild internal hemorrhoids. Retroflexion was performed in the rectum and no lesions were noted. Patient tolerated the procedure well. Impression: 1. mild gastritis antrum body, biopsied. Duodenal biopsies. 2. pandiverticulosis, with severe diverticulosis in the sigmoid colon. Recommendations: Findings of this examination were discussed with the patient as well as his daughter. Okay to resume liquid diet. Continue to monitor hemoglobin and hematocrit and transfuse as needed. Bleeding likely from diverticulosis. Supportive care.
[2018-11-07] MEDS: HYDROcodone/APAP 7.5-325MG 1 EACH TAB PO PRN (17:50)
[2018-11-07] MEDS: ATORVASTATIN 40 MG TAB PO SCH (20:21)
[2018-11-08] MEDS: HYDROcodone/APAP 7.5-325MG 1 EACH TAB PO PRN ×2 (01:13→08:39)
[2018-11-08] MEDS: SODIUM CHLORIDE 0.9% 1,000 ML IV SCH (01:14)
[2018-11-08 07:34] LABS: Basophils % (A) 1 %; Eosinophils # (A) 0.3 k/uL (0-0.7); Eosinophils % (A) 8 %; HCT 28.7 % (39.0-53.0); Hypochromasia Slight; Lymphocytes # (A) 0.9 k/uL (1.0-4.8); Lymphocytes % (A) 22 %; MCH 29.8 pg (25.0-35.0); MCHC 31.4 g/dL (31.0-37.0); MCV 94.9 fL (80.0-100.0); Mean Platelet Volume 6.6; Monocytes # (A) 0.3 k/uL (0-1.0); Monocytes % (A) 8 %; Neutrophils # (A) 2.3 k/uL (1.3-7.7); Neutrophils % (A) 58 %; Platelet Count 277 k/uL (150-450); RBC 3.02 m/uL (4.30-5.90); RDW 13.8 % (11.5-15.5)
[2018-11-08 07:46] LABS: African American GFR (CKD) >90 (>60 ml/min/1.73 sqM); Anion Gap 7 mmol/L; Blood Urea Nitrogen 12 mg/dL (9-20); Calcium 8.1 mg/dL (8.4-10.2); Carbon Dioxide 28 mmol/L (22-30); Chloride 103 mmol/L (98-107); Glucose 100 mg/dL (74-99); Non-African American GFR(CKD) 85 (>60 ml/min/1.73 sqM); Sodium 138 mmol/L (137-145)
[2018-11-08] MEDS: FINASTERIDE 5 MG TAB PO SCH (08:37)
[2018-11-08] MEDS: LOSARTAN 50 MG TAB PO SCH (08:37)
[2018-11-08] MEDS: METOPROLOL TARTRATE 25 MG TAB PO SCH (08:37)
[2018-11-08] MEDS: PANTOPRAZOLE 40 MG/10 ML VIAL IVP SCH (08:38)
[2018-11-08] MEDS: TAMSULOSIN 0.4 MG CAP.ER.24H PO SCH (08:38)
[2018-11-08] MEDS ORDERED: ARTIFICIAL TEARS-HYPROMELLOSE DROPS 15 ML BTL BOTH EYES PRN (10:20)
--- NOTE | 2018-11-08 11:19 | P.PN ---
Subjective Progress Note Date: 11/08/18 Principal diagnosis: Acute GI bleed. 73-year-old male patient who was hospitalized for GI bleed. The patient got moved to the intensive care unit yesterday. The patient was having bright red blood per rectum. The patient was taking aspirin. The patient is post right knee replacement that was done on 10/22/2018. The surgery went without any complications. The patient is known to have diverticulosis. He was treated for about of diverticulitis with abscess formation that was drained percutaneously back in 2017. He has undergone a recent EGD that showed gastric polyps without any other abnormalities noted. The patient came into the hospital passing gross bloody stool that was painless without any abdominal distention nausea or vomiting or diarrhea. He is last colonoscopy was around 40 years ago that was done locally in that showed colonic diverticulosis. The patient's CAT scan of the abdomen that showed sigmoid diverticulosis without diverticulitis. Hemoglo bin on 10/25/2018 was 11.1 and it dropped down to 10.6 on 11/01/2018. Hemoglobin subsequently dropped down to 10.4 and this morning is down to 9.6. Hemodynamically, the patient is not showing any tachycardia. BP is under good control with a BP of 121/63. Pulse ox 95% on room air. The patient is seen today 11/08/2018 in follow-up in the intensive care unit. He is currently awake and alert in no acute distress. Sitting up in a chair at the bedside. Maintaining good O2 saturations in the 90s on room air. He's been hemodynamically stable. No further active bleeding. White count 4.0. He moglobin 9.0. Creatinine 0.89. He did undergo EGD/colonoscopy and was found to have mild gastritis in the antrum and body that was biopsied. No biopsies taken. There was bullock diverticulosis with severe diverticulosis in the sigmoid colon. No active bleeding. He was resumed on a clear liquid diet. Objective - Vital Signs Vital signs: Vital Signs Temp 98.2 F 11/08/18 04:01 Pulse 60 11/08/18 10:00 Resp 15 11/08/18 10:00 BP 108/65 11/08/18 10:00 Pulse Ox 93 L 11/08/18 10:00 Intake & Output 11/07/18 11/08/18 11/08/18 18:59 06:59 18:59 Intake Total 2650 1200 Output Total 1301 725 Balance 1349 475 Weight 123.7 kg Intake: IV 1550 1200 Sodium Chloride 0.9% 1, 1200 1200 000 ml @ 100 mls/hr IV . Q10H [facility] Rx#:[id number] Oral 1100 Output: Urine 701 725 Stool 600 Other: Voiding Method Toilet Toilet Urinal Urinal # Voids 1 1 # Bowel Movements 1 - Exam GENERAL EXAM: Pleasant 73-year-old gentleman. Alert, active, comfortable in no apparent distress. On room air. HEAD: Normocephalic. EYES: Normal reaction of pupils, equal size. NOSE: Clear with pink turbinates. THROAT: No erythema or exudates. NECK: No masses, no JVD. CHEST: No chest wall deformity. LUNGS: Equal air entry with no crackles, wheeze, rhonchi or dullness. CVS: S1 and S2 normal with no audible murmur, regular rhythm. ABDOMEN: No hepatosplenomegaly, normal bowel sounds, no guarding or rigidity. SPINE: No scoliosis or deformity SKIN: No rashes CENTRAL NERVOUS SYSTEM: No focal deficits, tone is normal in all 4 extremities. EXTREMITIES: There is no peripheral edema. No clubbing, no cyanosis. Peripheral pulses are intact. - Labs CBC & Chem 7: 11/08/18 05:45 11/08/18 05:45 Labs: Abnormal Lab Results - Last 24 Hours (Table) 11/08/18 11/08/18 Range/Units 05:45 05:45 RBC 3.02 L (4.30-5.90) m/uL Hgb 9.0 L (13.0-17.5) gm/dL Hct 28.7 L (39.0-53.0) % Lymphocytes # 0.9 L (1.0-4.8) k/uL Glucose 100 H (74-99) mg/dL Calcium 8.1 L (8.4-10.2) mg/dL Assessment and Plan Assessment: Impression: 1 acute GI bleeding of a lower GI source. Consider diverticular bleeding. EGD/colonoscopy revealed mild gastritis in the antrum body, biopsied. Duodenal biopsies. Pandiverticulosis, with severe diverticulosis in the sigmoid colon. No active bleeding. 2 blood loss anemia with a drop in hemoglobin down to 9.0 3 previous history of complicated diverticulitis with abscess formation drained percutaneously 4 recent EGD showing gastric polyps 5 history of colonic diverticulosis established by previous colonoscopy that was done 4 years ago 6 hypertension 7 hyperlipidemia 8 BPH Plan: The patient was seen and evaluated by Dr. Newsome. He remains stable from the pulmonary and critical care standpoint. Discharged home once cleared by GI serv ices. We'll see her on a as-needed basis I, the cosigning physician, performed a history & physical examination of the patient. Lungs sounds are clear. Maintaining good O2 saturations in the 90s on room air. I discussed the assessment and plan of care with my nurse practitioner, Janey Reyes. I attest to the above note as dictated by her.
--- NOTE | 2018-11-08 11:40 | P.PN ---
Subjective This is a pleasant 73 years old male with past medical history of GERD, hyperlipidemia, hypertension, osteoarthritis, sleep apnea on CPAP/BiPAP, div erticulosis. Recent right knee replacement on.. When he was discharged to rehab with aspirin twice daily for DVT prophylaxis. He was discharge from rehab 1 day prior when he developed bright red blood per rectum. Patient denies abdominal pain or nausea vomiting. Today patient is still have some residual blood per rectum but this is less than yesterday. At baseline patient walks using her walker when he was discharge from the rehab. Patient Vitas looks stable and is 10.9 and 10.1, compared to 12.5 and 11.1 earlier this month. CBC and liver enzymes were unremarkable. Lipase within normal limits. Occult blood in stools positive. Patient was started on Protonix and admitted with a GI consultation. GI team recommended continue with Protonix with full liquid diet and outpatient colonoscopy in 4-6 weeks. 11/06/2018 Patient is awake with no chest pain or dyspnea. He still have a little bit of blood in his stool. However he is hemodynamically stable. Hemoglobin is stable at 10.7. Patient states that he had EGD done about 2 months ago around July/2018 where he has polyps removed from his stomach as per him. However his last colonoscopy about 4 years ago. GI team evaluated the patient and recommended to continue with Protonix daily and outpatient colonoscopy in 4-6 weeks, patient is aware of this and willing to follow up. Patient has bilateral leg swelling improving with Lasix. Doppler was negative for DVT in either leg. There were lower Lasix to 40 mg daily We'll check with GI team, as well as we'll consult is original orthopedic team with the the right knee replacement earlier this month for plan of anticoagulation. We were intending to give the patient in-house currently for further monitoring and evaluation. 11/07/2018 I was called overnight for patient has large bowel movement and oriented patient to be transferred to the ICU. Patient today seen and examined in the intensive care unit where he was lying comfortably not in distress. Denied chest pain or dyspnea. No abdominal pain or nausea vomiting. He said that yesterday he had large bowel movement of fresh blood, which was different from the scan drops dehydrated. His pain in the right leg/knee is controlled and this flexible is coming down. His been evaluated by orthopedic team and the recommended to keep holding the aspirin which was held since admission. Hemoglobin went down to 9 .6. [facility] follow-up is appreciated and planned for EGD/colonoscopy today. Blood pressure this morning is 164/75, last night it went down to 103/61, so we will hold Lasix. Continue with rest of his blood pressure medication. Increase Protonix to twice daily. Plan continue with IV fluids of normal saline at 100 mL per hour. 11/08/2018 Patient is fully awake and oriented. He remains in ICU with no much symptoms. He denies chest pain or dyspnea. No abdominal pain. He does not have bowel movement or blood in it so far. He is status post EGD which was done yesterday showing severe diverticulosis. His knee pain that looks controlled, leg swelling is improving. GI and critical care team input is appreciated. Because of his GI bleed patient aspirin was held upon orthopedic team recommendation however he developed more severe GI bleed after that so will keep the aspirin and hold as there is more than benefits. Patient informed and daughter at bedside and both of them I agree with the plan. Review of systems CONSTITUTIONAL: No fever, no malaise, no fatigue. HEENT: No recent visual problems or hearing problems. Denied any sore throat. CARDIOVASCULAR: No orthopnea, PND, no palpitations, no syncope. PULMONARY: No shortness of breath, no cough, no hemoptysis. GASTROINTESTINAL: No diarrhea, no nausea, no vomiting, no abdominal pain. Normoactive bowel sounds. NEUROLOGICAL: No headaches, no weakness, no numbness. HEMATOLOGICAL: Denies any bleeding or petechiae. GENITOURINARY: Denies any burning micturition, frequency, or urgency. MUSCULOSKELETAL/RHEUMATOLOGICAL: Denies any joint pain, swelling, or any muscle pain. ENDOCRINE: Denies any polyuria or polydipsia. Active Medications Generic Name Dose Route Start Last Admin Trade Name Freq PRN Reason Stop Dose Admin Hydrocodone Bitart/Acetaminophen 2 each 11/04/18 20:54 11/06/18 21:35 [place] 7.5-325 PO 2 each Q6HR PRN Administration Pain Atorvastatin Calcium 40 mg 11/04/18 21:00 11/06/18 21:36 Lipitor PO 40 mg HS CASTRO Administration Finasteride 5 mg 11/05/18 09:00 11/06/18 08:25 Proscar PO 5 mg QAM CASTRO Administration Sodium Chloride 1,000 mls @ 100 mls/hr 11/06/18 20:30 11/07/18 06:21 Saline 0.9% IV 100 mls/hr .Q10H [facility] Administration Losartan Potassium 50 mg 11/05/18 09:00 11/07/18 10:18 Cozaar PO 50 mg QAM CASTRO Administration Metoprolol Tartrate 25 mg 11/04/18 21:00 11/07/18 10:18 Lopressor PO 25 mg BID CASTRO Administration Naloxone HCl 0.2 mg 11/04/18 20:50 Narcan IV Q2M PRN Opioid Reversal Ondansetron HCl 4 mg 11/05/18 09:44 11/06/18 10:29 Zofran IVP 4 mg Q6HR PRN Administration Nausea And Vomiting Pantoprazole Sodium 40 mg 11/06/18 21:00 11/07/18 10:18 Protonix IVP 40 mg BID CASTRO Administration Prochlorperazine Maleate 5 mg 11/06/18 14:14 Compazine PO Q8HR PRN Nausea And Vomiting Tamsulosin HCl 0.4 mg 11/05/18 09:00 11/07/18 10:19 Flomax PO 0.4 mg DAILY CASTRO Administration Objective - Vital Signs Vital signs: Vital Signs Temp 98.2 F 11/08/18 04:01 Pulse 60 11/08/18 10:00 Resp 15 11/08/18 10:00 BP 108/65 11/08/18 10:00 Pulse Ox 93 L 11/08/18 10:00 Intake & Output 11/07/18 11/08/18 11/08/18 18:59 06:59 18:59 Intake Total 2650 1200 Output Total 1301 725 Balance 1349 475 Weight 123.7 kg Intake: IV 1550 1200 Sodium Chloride 0.9% 1, 1200 1200 000 ml @ 100 mls/hr IV . Q10H [facility] Rx#:[id number] Oral 1100 Output: Urine 701 725 Stool 600 Other: Voiding Method Toilet Toilet Urinal Urinal # Voids 1 1 # Bowel Movements 1 - Exam GENERAL: The patient is alert and oriented x3, not in any acute distress. Well developed, well nourished. HEENT: Pupils are round and equally reacting to light. EOMI. No scleral icterus. No conjunctival pallor. Normocephalic, atraumatic. No pharyngeal erythema. No thyromegaly. CARDIOVASCULAR: S1 and S2 present. No murmurs, rubs, or gallops. PULMONARY: Chest is clear to auscultation, no wheezing or crackles. ABDOMEN: Soft, nontender, nondistended, normoactive bowel sounds. No palpable organomegaly. MUSCULOSKELETAL: No joint swelling or deformity. EXTREMITIES: No cyanosis, clubbing, . He still has dressing around his right knee. Bilateral pitting leg edema, right more than left NEUROLOGICAL: Gross neurological examination did not reveal any focal deficits. SKIN: No rashes. - Labs CBC & Chem 7: 11/08/18 05:45 11/08/18 05:45 Labs: Abnormal Lab Results - Last 24 Hours (Table) 11/08/18 11/08/18 Range/Units 05:45 05:45 RBC 3.02 L (4.30-5.90) m/uL Hgb 9.0 L (13.0-17.5) gm/dL Hct 28.7 L (39.0-53.0) % Lymphocytes # 0.9 L (1.0-4.8) k/uL Glucose 100 H (74-99) mg/dL Calcium 8.1 L (8.4-10.2) mg/dL Assessment and Plan Assessment: Bright red blood per rectum, secondary to severe diverticular disease Acute blood loss anemia Recent history of knee replacement, improving History of diverticulitis in [place] about 2-3 years ago, as per patient Hypertension Hyperlipidemia History of GERD in History of sleep apnea on CPAP/BiPAP Bilateral leg edema, improving Plan: This is a pleasant 73 years old male who presents with GI bleed. Continue with Protonix twice daily. GI consult recommendation is appreciated and followed. Patient is status post EGD/colonoscopy showing mild gastritis and severe diverticular disease. Continue with IV fluid. Monitor hemoglobin. Patient looks his stable and he will be discharge once cleared by GI team. Keep holding aspirin Labs and medication were reviewed.. Continue same treatment. Continue with symptomatic treatment. Resume home medication. Monitor lytes and vitals. DVT and GI prophylaxis. Further recommendations of the clinical course of the patient DVT prophylaxis: No heparin in view of GI bleed GI Prophylaxis: Protonix Prognosis is guarded
[2018-11-08 15:42] VITALS: RESP 12
[2018-11-08 16:33] VITALS: BP 140/70; PULSE 81; TEMP 98.6
--- NOTE | 2018-11-08 17:34 | P.DS ---
Providers Date of admission: 11/06/18 21:11 Attending physician: Farooq Gray MD Consults: 11/04/18 20:52 Consult Physician Urgent Consulting Provider: Miguel Angel Camp Consult Reason/Comments: acute hematochezia, diverticulosis Do you want consulting provider notified?: Yes 11/06/18 08:26 Consult Physician Urgent Consulting Provider: Berry Whittaker Consult Reason/Comments: h/o of right knee surgery , on aspirin for dvt px. with gi bleed Do you want consulting provider notified?: Yes 11/06/18 20:58 Consult Physician Stat Consulting Provider: Andrew Newsome Consult Reason/Comments: active GI bleed Do you want consulting provider notified?: Yes Primary care physician: [facility] Hospital Course: Dx: Bright red blood per rectum, secondary to severe diverticular disease Acute blood loss anemia Recent history of knee replacement, improving History of diverticulitis in [place] about 2-3 years ago, as per patient Hypertension Hyperlipidemia History of GERD in History of sleep apnea on CPAP/BiPAP Bilateral leg edema, improving Hospital course This is a pleasant 73 years old male with past medical history of GERD, hyperlipidemia, hypertension, osteoarthritis, sleep apnea on CPAP/BiPAP, diverticulosis. Recent right knee replacement on. When he was discharged to rehab with aspirin twice daily for DVT prophylaxis. He was discharge from rehab one day prior to coming to this hospital. in the hospital pt developed large bloody bowel movement . His Hb remained stable around 9.0 upon discharge. he had colonoscopy done by GI team showing sever diverticular disease of the sigmoid colon. pt was monitored thereafter in the ICU for short period and he remained stable , vitals stable and no more bleeding per rectum . his diet advanced and he tolerated it well . orthopedic team who did his knee surgery earlier recommended to stop aspirin in view of his GI bleed, his right knee is healing well and pt is able to ambulate using a walker. pt was cleared by GI , critical care team and orthopedic team for discharge. pt will be discharge on protonix BID and he will f/u with GI as outpt Pt was instructed about the problems and management plan and Pt verbalized understanding and acceptance Pt is found stable and can be discharged to the community but needs follow up as outpt. pt was instructed to follow up with his PCP, GI and orthopedic teams. pt agrees with appointments and their timing and stated he will follow up (see exam from same day note) Patient Condition at Discharge: Stable Plan - Discharge Summary Discharge Rx Participant: Yes New Discharge Prescriptions: New Artificial Tears-Hypromellose [Artificial Tear Drops] 1 drops BOTH EYES QID PRN #0 bottle PRN Reason: Dry Eye(S) Continue Tamsulosin [Flomax] 0.4 mg PO DAILY Metoprolol Tartrate [Lopressor] 25 mg PO BID Losartan [Cozaar] 50 mg PO QAM Finasteride [Proscar] 5 mg PO QAM Omeprazole 20 mg PO QAM Cholecalciferol (Vitamin D3) [Vitamin D3] 2,000 unit PO DAILY Atorvastatin [Lipitor] 40 mg PO HS Docusate [Colace] 100 mg PO DAILY #30 capsule HYDROcodone/APAP 7.5-325MG [[place] 7.5-325] 1 - 2 each PO Q6HR PRN #56 tab PRN Reason: Pain Discontinued Aspirin [Adult Low Dose Aspirin EC] 81 mg PO BID #60 tablet.dr Discharge Medication List Atorvastatin [Lipitor] 40 mg PO HS 10/09/18 [History] Cholecalciferol (Vitamin D3) [Vitamin D3] 2,000 unit PO DAILY 10/09/18 [History] Finasteride [Proscar] 5 mg PO QAM 10/09/18 [History] Losartan [Cozaar] 50 mg PO QAM 10/09/18 [History] Metoprolol Tartrate [Lopressor] 25 mg PO BID 10/09/18 [History] Omeprazole 20 mg PO QAM 10/09/18 [History] Tamsulosin [Flomax] 0.4 mg PO DAILY 10/09/18 [History] Docusate [Colace] 100 mg PO DAILY #30 capsule 10/23/18 [Rx] HYDROcodone/APAP 7.5-325MG [[place] 7.5-325] 1 - 2 each PO Q6HR PRN #56 tab 10/23/18 [Rx] Artificial Tears-Hypromellose [Artificial Tear Drops] 1 drops BOTH EYES QID PRN #0 bottle 11/08/18 [Rx] Follow up Appointment(s)/Referral(s): Ghassan Senior MD [Medical Doctor] - 1 Week (Office closes at 2pm on Fridays. Unable to make appointment.) Tete Yee MD [STAFF PHYSICIAN] - 12/05/18 3:15 pm (consulting group analyst ) Berry Whittaker DO [Doctor of Osteopathic Medicine] - 11/20/18 2:[address] [facility] [Primary Care Provider] - 11/11/18 9:00 am (Spoke with Rachael at [facility]. She states they only see renato barnard and do not have a provider at this time to see the patient. She will call patient if they can make different arrangements.) Patient Instructions/Handouts: Gastritis (DC), Gastrointestinal Bleeding (DC), Diverticulitis (DC) Activity/Diet/Wound Care/Special Instructions: Follow your regular diet. Continue with orthopedic orders from prior to hospitalization. Wear the JEANNETTE hose. Discharge Disposition: HOME SELF-CARE
== END 2018-11-08 18:18 | disposition home or self-care (01) | DRG 378 ==
LOC: EC 13:39 → 4SSUR 20:50 → OBSVTOIN 11-06 21:11 → 2SICU 11-06 23:44
PROVIDERS: ADMIT Internal Medicine; ATTEND Internal Medicine
PROC: 0DB98ZX Excision of Duodenum, Via Natural or Artificial Opening Endoscopic, Diagnostic (ICD-10-PCS; principal; 2018-11-07 08:15)
PROC: 0DJD8ZZ Inspection of Lower Intestinal Tract, Via Natural or Artificial Opening Endoscopic (ICD-10-PCS; principal; 2018-11-07 08:15)
PROC: 0DB78ZX Excision of Stomach, Pylorus, Via Natural or Artificial Opening Endoscopic, Diagnostic (ICD-10-PCS; principal; 2018-11-07 08:15)
DX: K57.31 Diverticulosis of large intestine without perforation or abscess with bleeding (principal); D62 Acute posthemorrhagic anemia; E86.0 Dehydration; K29.50 Unspecified chronic gastritis without bleeding; K64.8 Other hemorrhoids; E78.5 Hyperlipidemia, unspecified; G47.30 Sleep apnea, unspecified; G89.29 Other chronic pain; I10 Essential (primary) hypertension; K21.9 Gastro-esophageal reflux disease without esophagitis; K59.00 Constipation, unspecified; R60.0 Localized edema; N40.0 Benign prostatic hyperplasia without lower urinary tract symptoms; M19.90 Unspecified osteoarthritis, unspecified site; Z96.652 Presence of left artificial knee joint; Z79.82 Long term (current) use of aspirin; Z79.899 Other long term (current) drug therapy; Z98.890 Other specified postprocedural states; Z99.89 Dependence on other enabling machines and devices
CPT/HCPCS: 36415; 43239; 45378; 74177; 80048; 80053; 82272; 83605; 83690; 85025; 85610; 85730; 86850; 86900; 86901; 88305; 93005; 93970; 96361; 96374; 96375; 99285

== ENCOUNTER → 2019-11-24 | Outpatient (CLI) | payer MEDICARE ==
--- NOTE | 2019-11-24 13:50 | XR ---
EXAMINATION TYPE: XR chest 2V DATE OF EXAM: 11/24/2019 COMPARISON: Chest x-ray February 26, 2015. HISTORY: Pre-MRI clearance. Possible metallic foreign body in chest. Prior surgery for pectus deformi ty. TECHNIQUE: Frontal and lateral views of the chest are obtained. FINDINGS: There is chronic parenchymal changes in the lung bases without suspicious focal air space opacity, pleural effusion, or pneumothorax seen. The cardiac silhouette size remains within normal l imits. Old fracture deformity posterior lateral right seventh rib redemonstrated. Persistent pectus d eformity on lateral view similar to prior study. IMPRESSION: As above. No metallic intrathoracic foreign body seen to prevent MRI study.
== END | disposition home or self-care (01) ==
LOC: RADXRMAIN 13:25
PROVIDERS: ATTEND Orthopaedic Surgery Orthopaedic Surgery of the Spine
DX: M54.5 Low back pain (principal)
CPT/HCPCS: 71046